=== PATIENT | male | born 1945 | race Caucasian/White ===

== ENCOUNTER 2017-01-12 20:06 | Inpatient (IN) | payer MEDICARE, OTHER ==
[~2017-01-12] VITALS: Ht 175.3 cm; Wt 106.4 kg
[2017-01-12 20:49] LABS: BASOPHILS 0.4 % (0-2); EOSINOPHILS 1.5 % (0-7); HEMATOCRIT 47.6 % (42.0-54.0); HEMOGLOBIN 16.2 g/dL (13.5-17.5); IMMATURE GRANULOCYTES 0.3 % (0-5); LYMPHOCYTES 26.7 % (15-50); MCH 32.2 pg (26.0-34.0); MCV 94.6 fL (80.0-100.0); MEAN PLATELET VOLUME 11.2 fL (7.4-10.4); MONOCYTES 12.2 % (2-11); NEUTROPHILS 58.9 % (40-80); PLATELET COUNT 185 10x3/uL (130-400); RBC 5.03 10x6/uL (4.20-6.10); RDW 13.6 % (11.5-14.5); WBC 7.9 10x3/uL (4.8-10.8)
[2017-01-12 21:13] LABS: KETONE - SERUM NEGATIVE (NEGATIVE)
[2017-01-12 21:27] LABS: ALBUMIN 3.9 g/dL (3.4-5.0); ALKALINE PHOSPHATASE 139 U/L (46-116); ALT (SGPT) 27 U/L (10-68); AMYLASE - SERUM 71 U/L (25-115); BILIRUBIN - TOTAL 0.67 mg/dL (0.2-1.3); CALC OSMOLALITY 288 mosm/kg (275-300); CALCIUM 9.2 mg/dL (8.5-10.1); CARBON DIOXIDE 21.8 mmol/L (21.0-32.0); CHLORIDE - SERUM 104 mmol/L (98-107); CREATININE - SERUM 2.2 mg/dL (0.6-1.3); GLUCOSE 249 mg/dL (74-106); LIPASE 88 U/L (73-393); POTASSIUM - SERUM 4.4 mmol/L (3.5-5.1); PROTEIN - SERUM 6.6 g/dL (6.4-8.2); SODIUM 139 mmol/L (136-145); UREA NITROGEN 21 mg/dL (7-18); eGFR NON AFRICAN AMERICAN 31 mL/min (90-120)
[2017-01-13 05:02] VITALS: Ht 175.3 cm; Wt 106.4 kg
[2017-01-13 08:44] VITALS: BP 114/72
[2017-01-13 12:57] VITALS: BP 134/71
[2017-01-13 15:27] LABS: APPEARANCE CLEAR (CLEAR); BILIRUBIN NEGATIVE (NEGATIVE); COLOR DK YELLOW (YELLOW); GLUCOSE 100 mg/dL (NEGATIVE); KETONE MODERATE mg/dL (NEGATIVE); LEUKOCYTE ESTERASE NEGATIVE (NEGATIVE); NITRITE NEGATIVE (NEGATIVE); PROTEIN NEGATIVE (NEGATIVE)
[2017-01-13 20:00] VITALS: BP 162/88
[2017-01-14] VITALS: BP 139/94
[2017-01-14 04:00] VITALS: BP 167/91
[2017-01-14 05:29] LABS: BASOPHILS 0.4 % (0-2); EOSINOPHILS 0.3 % (0-7); HEMATOCRIT 45.5 % (42.0-54.0); IMMATURE GRANULOCYTES 0.3 % (0-5); MCH 31.6 pg (26.0-34.0); MEAN PLATELET VOLUME 10.9 fL (7.4-10.4); MONOCYTES 14.1 % (2-11); NEUTROPHILS 66.9 % (40-80); PLATELET COUNT 170 10x3/uL (130-400); RBC 4.74 10x6/uL (4.20-6.10); RDW 13.7 % (11.5-14.5); WBC 6.7 10x3/uL (4.8-10.8)
[2017-01-14 05:56] LABS: CALCIUM 8.6 mg/dL (8.5-10.1); POTASSIUM - SERUM 4.3 mmol/L (3.5-5.1)
[2017-01-14 06:00] LABS: CARBON DIOXIDE 28.3 mmol/L (21.0-32.0); CREATININE - SERUM 1.6 mg/dL (0.6-1.3)
--- NOTE | 2017-01-14 08:03 | CN ---
PATIENT NAME:TAIWO PAINTER MEDICAL RECORD: [id number] : 41 LOCATION:D.[facility] ADMIT DATE: 01/13/17 ACCOUNT: [id number] CONSULTING PHYSICIAN: ARACELIS GRUBER MD REFERRING PHYSICIAN: BHAVESH OWENS MD DATE OF CONSULTATION: 01/13/2017 ADMITTING PHYSICIAN: Bhavesh Owens MD. REASON FOR ADMISSION: Medical management of diabetic patient with bowel obstruction. HISTORY OF PRESENT ILLNESS: The patient is a 71-year-old male, type 2 diabetic, who states that he was feeling well, he ate some peaches 2 days ago. He felt some nausea afterwards then developed some recurrent vomiting and then diarrhea. He came to the Emergency Room at 2000 hours last night for this reason. X-rays at that time showed evidence of small bowel obstruction with a small umbilical hernia with fat within it. He was admitted to [facility]. Dr. Owens admitted the patient and consulted us medically. He denies any recent fever, exertional chest pain. He states he is currently on 70 units of long-acting insulin a day and has had fairly well-controlled diabetes. He states he had a similar episode of this approximately 10 years ago, the result with gut rest again. He had a previous gangrenous cholecystectomy, open procedure in the late and has had a hernia ever since. PAST MEDICAL HISTORY: Type 2 diabetes mellitus, GERD, anxiety, depression, BPH, essential hypertension, histoplasmosis retinitis causing partial blindness, COPD, renal cyst, mild renal insufficiency, restless leg syndrome. PAST SURGICAL HISTORY: Open cholecystectomy for gangrene of the gallbladder remotely, bilateral inguinal hernia repairs, ventral hernia repair, colonoscopy in 2011 showing diverticular disease. SOCIAL HISTORY: He lives with his daughter. his last year. The patient was in the [employer] approximately 20 years and then retired. He does not drink coffee. No recent alcohol use, but did drink heavily over 10 years ago. Does not smoke currently. He previously smoked 4 packs a day for 12 years. ALLERGIES: None known. FAMILY HISTORY: Father at 92, had hypertension, respiratory failure, stroke, lung cancer, prostate and testicular cancer. Mother at age 26. Two daughters alive with diabetes and neuropathy. HOME MEDICATIONS: Amaryl 4 mg p.o. daily, amlodipine 5 mg p.o. daily, imipramine 50 mg p.o. at bedtime, Lantus 70 units subQ q.p.m., latanoprost 0.005% solution 1 drop to affected eye as directed, lisinopril 5 mg a day, omeprazole 40 mg a day, tamsulosin 0.4 mg p.o. with evening meal, Wellbutrin XL 150 mg p.o. once daily and temazepam 7.5 mg p.o. at h.s. p.r.n. sleep. REVIEW OF SYSTEMS: CONSTITUTIONAL: No fever, fatigue, or weight change. HEENT: He has chronic trouble with his vision. Denies any recent otalgia or ocular pain. CONSULT REPORT [id number] TAIWO PAINTER RESPIRATORY: Denies shortness of breath, cough or sputum production. CARDIAC: Denies chest pain, claudication or edema. He had negative stress test [address] Leyva's office. GASTROINTESTINAL: Nausea with vomiting as mentioned, repetitive, and some diarrhea. He has had moderate periumbilical abdominal discomfort. No melena or hemetemesis. No previous history of gastric ulcers or peptic ulcer disease. He does have known history of GERD. MUSCULOSKELETAL: He has arthralgias in his knees and hips. NEUROLOGIC: No history of stroke, TIA, or vascular headaches. INTEGUMENT: No rash or itching. PSYCHIATRIC: Denies depress mood currently. PHYSICAL EXAMINATION: VITAL SIGNS: Temperature 98.2 Fahrenheit orally, pulse 88 and regular, respirations 20, blood pressure was 70/50 with a sat 99% on room air. HEENT: Normocephalic. Eyes with clear vision. Pupils reactive. Sclerae nonicteric. Oropharynx unremarkable. NECK: No bruits or masses or thyromegaly. CHEST: He has distant breath sounds without wheeze or rales. HEART: Regular rate without MGR. PMI appropriate. ABDOMEN: Mildly distended with healed right upper quadrant open cholecystectomy scar. There is question of a hernia in the proximal end of this around the umbilicus. RECTAL: Deferred. EXTREMITIES: Trace pretibial edema of the knees bilaterally. He is not cyanotic. NEUROLOGIC: Oriented to person, place, and time. Good memory. Gait is normal. No localizing neurologic deficits were appreciated. PSYCHIATRIC: Admits to some anxiety with no recent depressed mood. LABORATORY DATA: White count 7900 with normal diff, H&H is 16.2 and 47.6, platelet count 185,000. Chemistry shows a BUN and creatinine of 21 and 2.2, baseline creatinine is not known, although he has seen renal in the past. GFR is 31 cc per minute. Glucose is 249, nonfasting. Lactate was 1.4. Liver function normal except for an alkaline phosphatase of 139. Amylase and lipase are normal. Serum ketones are negative. Urinalysis is pending. KUB shows NG tube is not noted. Abdominal CT shows diverticulosis without diverticulitis, 1.1 cm pulmonary nodule in the right lung base, mild dilatation of proximal small bowel loops suggesting low grade or partial obstruction, tiny fat-containing supraumbilical hernia, left renal cyst. ASSESSMENT: 1. Partial small-bowel obstruction most likely secondary to supraumbilical hernia. 2. Remote miniscule cystitis. 3. Azotemia. 4. Diabetes mellitus. 5. Diverticulosis. 6. Essential hypertension. 7. Granulomatous retinitis. 8. Anxiety, depression. 9. Gastroesophageal reflux disease. 10. Benign prostatic hypertrophy. PLAN: The patient currently is admitted with the above findings. He is on CONSULT REPORT [id number] TAIWO PAINTER maintenance IV fluids with NG gut rest. We will placed on sliding scale insulin, address hypertension as needed. We will follow with you currently. TRANSINT:[id number] Voice Confirmation ID: [id number] DOCUMENT ID: [id number] ARACELIS GRUBER MD at 0803 CC: [id number] DICTATION DATE: 01/13/17 1320 RED CROSS EXECUTIVE DIRECTOR: 01/14/[address] [facility] [address] [place] [address]
[2017-01-14 08:58] VITALS: BP 156/82
[2017-01-14] MEDS ORDERED: GLIMEPIRIDE4 MG PO (09:56)
[2017-01-14] MEDS ORDERED: TOFRANIL25 MG PO (09:57)
[2017-01-14] MEDS ORDERED: NORVASC5 MG PO (09:57)
[2017-01-14] MEDS ORDERED: LISINOPRIL5 MG PO (09:57)
[2017-01-14 11:43] VITALS: BP 135/86
== END 2017-01-14 13:00 | disposition home or self-care (01) | DRG 389 ==
LOC: D.ER 20:06 → D.MS 01-13 01:07 → OBSVTIME 01-13 01:07 → D.MS 01-13 01:07
PROVIDERS: Family Medicine; ADMIT Surgery
PROC: 0D9670Z Drainage of Stomach with Drainage Device, Via Natural or Artificial Opening (ICD-10-PCS; principal; 2017-01-13)
DX: K56.60 Unspecified intestinal obstruction (principal); K42.0 Umbilical hernia with obstruction, without gangrene; E11.9 Type 2 diabetes mellitus without complications; Z79.4 Long term (current) use of insulin; K21.9 Gastro-esophageal reflux disease without esophagitis; N40.0 Benign prostatic hyperplasia without lower urinary tract symptoms; I10 Essential (primary) hypertension; J44.9 Chronic obstructive pulmonary disease, unspecified; G25.81 Restless legs syndrome; B39.9 Histoplasmosis, unspecified; H32 Chorioretinal disorders in diseases classified elsewhere

== ENCOUNTER 2017-03-01 06:58 | Day surgery (SDC) | payer MEDICARE, OTHER ==
[~2017-03-01] VITALS: Ht 175.3 cm; Wt 108.9 kg
[~2017-03-01 06:58] MED LIST: GLIMEPIRIDE4 MG PO; LANTUS INSULIN10 ML SC; LISINOPRIL5 MG PO; NORVASC5 MG PO; TOFRANIL25 MG PO; VITAMIN D250000 UNIT PO; XALATAN 0.0052.5 ML EACH EYE
[2017-03-01] MEDS ORDERED: BUPROPION HCL150 M1 PO (07:33)
[2017-03-01 07:35] VITALS: BP 129/76; Ht 175.3 cm; Wt 108.9 kg
[2017-03-01 08:13] LABS: HEMATOCRIT 43.5 % (42.0-54.0); HEMOGLOBIN 15.1 g/dL (13.5-17.5); MCH 32.3 pg (26.0-34.0); MCHC 34.7 g/dL (31.0-37.0); MCV 92.9 fL (80.0-100.0); MEAN PLATELET VOLUME 11.2 fL (7.4-10.4); RBC 4.68 10x6/uL (4.20-6.10); RDW 13.4 % (11.5-14.5); WBC 5.7 10x3/uL (4.8-10.8)
[2017-03-01 08:37] LABS: ANION GAP 14.2 mmol/L (8-16); CALCIUM 8.7 mg/dL (8.5-10.1); CARBON DIOXIDE 23.8 mmol/L (21.0-32.0); CREATININE - SERUM 1.7 mg/dL (0.6-1.3)
--- NOTE | 2017-03-01 15:40 | NUR ---
PATIENT ATTEMPTS TO SIT ON TOILET AND URINATE, PATIENT STATES "I DRIBBLED A DROP OR TWO BUT THAT WAS ALL." PATIENT WALKS BACK TO BED WITH STAND-BY ASSIST AND LIES DOWN, WATER GIVEN AND PATIENT ENCOURAGED TO DRINK
--- NOTE | 2017-03-01 17:15 | NUR ---
PATIENT VOIDS MODERATE AMOUNT URINE IN TOILET, RIGHT HAND PIV DC'D WITH TIP INTACT. PATIENT DRESSING IN PERSONAL CLOTHING
--- NOTE | 2017-03-01 17:40 | NUR ---
DISCHARGE INSTRUCTIONS REVIEWED WITH PATIENT AND GRANDDAUGHTER. DISCHARGED HOME VIA WHEELCHAIR TO PRIVATE VEHICLE WITH GRANDDAUGHTER
== END 2017-03-01 17:40 | disposition home or self-care (01) ==
LOC: D.OPS 06:58 → D.PAN 09:20 → D.OPS 12:15 → D.PAN 12:15 → D.OPS 17:40
PROVIDERS: Anesthesiology
DX: K43.9 Ventral hernia without obstruction or gangrene (principal); J44.9 Chronic obstructive pulmonary disease, unspecified; I10 Essential (primary) hypertension; E11.9 Type 2 diabetes mellitus without complications; M19.90 Unspecified osteoarthritis, unspecified site; K66.0 Peritoneal adhesions (postprocedural) (postinfection); Z01.812 Encounter for preprocedural laboratory examination

== ENCOUNTER 2017-05-28 09:41 | Observation (INO) | payer MEDICARE, OTHER ==
[~2017-05-28] VITALS: Ht 177.8 cm; Wt 105.4 kg
[~2017-05-28 09:41] MED LIST changes: +WELLBUTRIN XL150 M1 PO
[2017-05-28 10:31] LABS: BASOPHILS 0.2 % (0-2); EOSINOPHILS 0.5 % (0-7); HEMATOCRIT 47.1 % (42.0-54.0); HEMOGLOBIN 16.7 g/dL (13.5-17.5); IMMATURE GRANULOCYTES 0.6 % (0-5); MCH 33.1 pg (26.0-34.0); MCHC 35.5 g/dL (31.0-37.0); MCV 93.5 fL (80.0-100.0); MEAN PLATELET VOLUME 11.7 fL (7.4-10.4); MONOCYTES 7.5 % (2-11); NEUTROPHILS 84.2 % (40-80); PLATELET COUNT 187 10x3/uL (130-400); RBC 5.04 10x6/uL (4.20-6.10); RDW 13.8 % (11.5-14.5); WBC 13.7 10x3/uL (4.8-10.8)
[2017-05-28 10:57] LABS: ALBUMIN 3.9 g/dL (3.4-5.0); ANION GAP 14.2 mmol/L (8-16); BILIRUBIN - TOTAL 0.86 mg/dL (0.2-1.3); CALCIUM 8.9 mg/dL (8.5-10.1); CREATININE - SERUM 2.3 mg/dL (0.6-1.3); POTASSIUM - SERUM 4.2 mmol/L (3.5-5.1); PROTEIN - SERUM 6.9 g/dL (6.4-8.2)
--- NOTE | 2017-05-28 11:40 | NUR ---
RECEIVED REPORT FROM YVON IN ED FOR PATIENT BEING ADMITTED TO 2105.
--- NOTE | 2017-05-28 12:10 | NUR ---
RECEIVED PATIENT TO ROOM 2106 VIA WHEELCHAIR FROM ED. PATIENT ALERT/ORIENTED. MINIMAL ASSIST ON TRANSFERING FROM CHAIR TO BED. 20 GAUGE TO LEFT WRIST SALINE LOCKED. RESP EVEN AND UNLABORED. NO DISTRESS. REDNESS TO LEFT KNEE NOTED FROM FALLING EARLY AT HOME REPORTED BY PATIENT.
--- NOTE | 2017-05-28 12:18 | NUR ---
ATTEMPTED TO FLUSH IV TO LEFT WRIST, IV INFILTRATED. WILL HAVE TO RESTART.
[2017-05-28] MEDS ORDERED: FLOMAX0.4 MG PO (12:23)
[2017-05-28] MEDS ORDERED: OMEPRAZOLE40 MG PO (12:24)
[2017-05-28 15:01] VITALS: BP 133/84; Ht 177.8 cm; Wt 105.4 kg
--- NOTE | 2017-05-28 15:47 | NUR ---
20 GAUGE REMOVED FROM LEFT WRIST IV WAS INFILTRATED. 22 GAUGE IV PLACED X 1 STICK TO LEFT FOREARM, GOOD BLOOD RETURN, EASY FLUSH. TAPED, DATED AND SECURED. IV FLUIDS INFUSING ORDERED AT THIS TIME. TOLERATED IV PLACEMENT WELL. NO DISTRESS.
--- NOTE | 2017-05-28 16:25 | NUR ---
FSBS 162. 4 UNITS HUMALOG ADMINISTERED PER SLIDING SCALE.
--- NOTE | 2017-05-28 19:15 | NUR ---
RECEIVED REPORT. WILL ASSUME CARE OF PT, PT SLEEPING AT THIS TIME, BED IS LOW, SRX2, CALL LIGHT IN REACH, WILL CONTINUE PLAN OF CARE
[2017-05-28 20:00] VITALS: BP 128/64
--- NOTE | 2017-05-28 21:00 | NUR ---
[id number] 4 UNITS ORDER
[2017-05-29] VITALS: BP 122/80
--- NOTE | 2017-05-29 02:30 | NUR ---
ASSESSMENT COMPLETE, SEE FLOWSHEET, PT SLEEPING, SCD ARE ON, BED IS LOW, SRX2, WILL CONTINUE PLAN OF CARE
[2017-05-29 05:55] VITALS: BP 142/88
--- NOTE | 2017-05-29 06:25 | NUR ---
BLOODSUGAR 53, GAVE OJ AND CRACKERS RECHECK-88
--- NOTE | 2017-05-29 07:43 | NUR ---
AM ROUNDING- RECIEVED REPORT FROM CHEMICAL TESTER NURSE MOOKIE. PT IS CURRENTLY LAYING IN BED ON BACK WITH EYES CLOSED RESTING. ON ROOM AIR. ON MONITOR SHOWING SR, HR 77. IV SEEN TO LUKE FOREARM WI NS RUNNING AT 100CC. NO NEED AT THIS CURRENT TIME. DUE TO HX OF FALLS (PER REPORT FROM MOOKIE), CATRACHITO BED ALARM IS ON. WILL CONTINUE TO MONITOR AND CONTINUE WITH PLAN OF CARE.
[2017-05-29 08:00] VITALS: BP 131/65
[2017-05-29 12:00] VITALS: BP 138/70
[2017-05-29 16:00] VITALS: BP 114/70
--- NOTE | 2017-05-29 17:36 | NUR ---
PT IS CURRENTLY SITTING UP IN CHAIR WITH EYES OPEN RESTING. CANDELARIO WOO IS WORKING ON PTS D/C PAPERWORK NOW. WILL CONTINUE TO MONITOR AND D/C PT ORDERED ONCE PAPERWORK IS DONE.
--- NOTE | 2017-05-29 18:31 | NUR ---
D/C INSTRUCTIONS EXPLAINED TO PT. D/C PAPERWORK SIGNED BY PT AND PLACED IN CHART. IV TO LEFT FOREARM REMOVED WITH CATH TIP INTACT. COVERED SITE WITH 2X2 GAUZE PADS AND SECURED WITH TAPE. HEART MONITOR REMOVED AND RETURNED TO JAMIN IN TELEMETRY. PT D/C VIA WHEELCHAIR.
--- NOTE | 2017-05-31 20:04 | HP ---
PATIENT: TAIWO PAINTER MEDICAL RECORD: [id number] ACCOUNT: [id number] LOCATION:[address] : 43 ADMISSION DATE: 05/28/17 HISTORY AND PHYSICAL EXAMINATION DATE OF ADMISSION: 05/28/2017 REASON FOR ADMISSION: 1. Hypotension/dizziness. 2. Fall. 3. Contusion in the left knee. HISTORY OF PRESENT ILLNESS: This is a 72-year-old male followed by Yue العلي APN, at [facility]. The patient states that he got up at home and got real dizzy and fell down. He did not lose consciousness. He twisted his left knee a little, but states his pain is worse after he had to crawl on his hands and knees to get to a phone. When he was brought in to the Emergency Room, his vital signs were stable except his blood pressure was 85/62. He does not remember taking an extra dose of blood pressure medication. He has not had this problem before. He is assigned to observation for this problem. PAST MEDICAL HISTORY: He has type 2 diabetes, reflux, history of anxiety, depression, enlarged prostate, hypertension, COPD, mild renal insufficiency, restless leg syndrome, histoplasmosis, and retinitis causing partial blindness. PAST SURGICAL HISTORY: He had open cholecystectomy for gangrene of the gallbladder years ago. He has had bilateral inguinal hernia repairs, ventral hernia repair, colonoscopy in 2011 showing diverticular disease in January of this year, he was admitted for bowel obstruction. HOME MEDICATIONS: Include: Flomax 0.4 mg once a day, lisinopril 5 mg once a day, amlodipine 5 mg once a day, Wellbutrin 150 mg once a day, imipramine 25 mg at bedtime for dreams, Xalatan ophthalmic drops 1 drop each eye at bedtime, Protonix 40 mg once a day, glimepiride 4 mg with breakfast, Lantus insulin 65 units daily, vitamin D 50,000 units once a month. ALLERGIES: None known. SOCIAL HISTORY: Lives with his daughter. He is . He was retired from the [employer]. HABITS: Heavy drinker over 10 years ago, smokes heavily, but quit 10-12 years ago. FAMILY HISTORY: Father at 92 with blood pressure. He had a stroke, lung cancer, prostate and testicular cancer. Mother at 26. Two daughters alive with diabetes. REVIEW OF SYSTEMS: GENERAL: No major weight changes. HEENT: No particular sinus or allergy problems. RESPIRATORY: Has mild COPD, but has no recent cough or shortness of breath. GASTROINTESTINAL: He has been admitted with bowel obstruction, has occasional nausea, some reflux. MUSCULOSKELETAL: Arthralgias in knees and hips. HISTORY AND PHYSICAL [id number] TAIWO PAINTER NEUROLOGIC: No history of stroke, TIA or vascular headaches. PSYCHIATRIC: He is on Wellbutrin for depression. The imipramine is used to help with abnormal dreams. PHYSICAL EXAMINATION: GENERAL: He is awake and alert, does not appear in acute distress at this time. VITAL SIGNS: Temperature 97.3, pulse 91, respirations 18, blood pressure 133/84 now. O2 sat 98%. HEENT: Unremarkable. NECK: Supple. No JVD or bruit. HEART: Regular rate and rhythm without murmur. LUNGS: Fairly clear. ABDOMEN: Soft, flat, nontender. EXTREMITIES: Has a little discomfort in the left knee, no point tenderness. I do not think there are any fractures. EXTREMITIES: No edema. LABORATORY DATA: CBC with a white count of 13,700; hemoglobin 16.7, hematocrit 47, platelets number 187,000. Glucose was 162, BUN 21, creatinine 2.3, glucose was 333. Liver enzymes were okay. ASSESSMENT: 1. Hypotension/dizziness. 2. Fall at home. 3. Contusion in the left knee. PLAN: Give IV fluids, we will hold blood pressure medicines. If he feels fine tomorrow, we will send him home and stop the Lisinopril. TRANSINT:[id number] Voice Confirmation ID: [id number] DOCUMENT ID: [id number] DEBRA ASH MD at 2004 CC: [id number] DICTATION DATE: 05/29/17 1440 SCALE ADJUSTER: 05/29/171933 DIS IN 05/29/17 [facility] [address] [place] [address]
== END 2017-05-29 18:32 | disposition home or self-care (01) ==
LOC: D.ER 09:41 → D.M2 11:20 → OBSVTIME 11:20 → D.M2 05-29 18:32
PROVIDERS: Emergency Medicine; ADMIT Family Medicine
DX: I95.9 Hypotension, unspecified (principal); R42 Dizziness and giddiness; S80.02XA Contusion of left knee, initial encounter; W19.XXXA Unspecified fall, initial encounter; E11.9 Type 2 diabetes mellitus without complications; F32.9 Major depressive disorder, single episode, unspecified; F41.9 Anxiety disorder, unspecified; I10 Essential (primary) hypertension; J44.9 Chronic obstructive pulmonary disease, unspecified; G25.81 Restless legs syndrome

== ENCOUNTER → 2017-06-20 14:38 | Outpatient (CLI) | payer MEDICARE, OTHER ==
[2017-05-28 15:01] VITALS: BMI 33.3
[~2017-06-20 14:38] MED LIST changes: +FLOMAX0.4 MG PO; +OMEPRAZOLE40 MG PO
[2017-06-21 12:18] LABS: ANA REFLEX - DIRECT Negative (Negative)
[2017-06-22 05:14] LABS: ANGIOTENSIN CONVERTING ENZYME 22 U/L (14-82)
[2017-06-24 17:11] LABS: FUNGAL - ASP FLAVUS Negative (Neg:<1:1); FUNGAL - ASP NIGER Negative (Neg:<1:1); FUNGAL - ASPER FUMIGATUS Negative (Neg:<1:1)
== END | disposition home or self-care (01) ==
LOC: D.LABREF 14:38
PROVIDERS: Internal Medicine Pulmonary Disease
DX: J44.9 Chronic obstructive pulmonary disease, unspecified (principal)

== ENCOUNTER → 2017-07-04 08:28 | Outpatient (CLI) | payer MEDICARE, OTHER ==
[2017-05-28 15:01] VITALS: BMI 33.3
[2017-07-05 10:18] LABS: ANA REFLEX - DIRECT Negative (Negative)
[2017-07-06 12:15] LABS: ANGIOTENSIN CONVERTING ENZYME 21 U/L (14-82)
== END | disposition home or self-care (01) ==
LOC: D.RT 06-16 11:00 → D.LAB 06-16 12:00 → D.RT 08:28
PROVIDERS: Internal Medicine Pulmonary Disease
DX: J44.9 Chronic obstructive pulmonary disease, unspecified (principal)

== ENCOUNTER 2017-11-03 00:30 | Emergency (ER) | payer MEDICARE, OTHER ==
[2017-05-28 15:01] VITALS: BMI 33.3
[2017-11-03 01:02] LABS: BASOPHILS 0.4 % (0-2); HEMATOCRIT 42.7 % (42.0-54.0); HEMOGLOBIN 14.9 g/dL (13.5-17.5); IMMATURE GRANULOCYTES 0.3 % (0-5); LYMPHOCYTES 9.8 % (15-50); MCH 32.2 pg (26.0-34.0); MCHC 34.9 g/dL (31.0-37.0); MCV 92.2 fL (80.0-100.0); MEAN PLATELET VOLUME 10.7 fL (7.4-10.4); NEUTROPHILS 73.5 % (40-80); PLATELET COUNT 159 10x3/uL (130-400); RBC 4.63 10x6/uL (4.20-6.10); RDW 13.3 % (11.5-14.5); WBC 7.1 10x3/uL (4.8-10.8)
[2017-11-03 01:18] LABS: ALBUMIN 3.5 g/dL (3.4-5.0); ALKALINE PHOSPHATASE 121 U/L (46-116); ALT (SGPT) 22 U/L (10-68); BILIRUBIN - TOTAL 0.65 mg/dL (0.2-1.3); CALC OSMOLALITY 272 mosm/kg (275-300); CALCIUM 8.8 mg/dL (8.5-10.1); CARBON DIOXIDE 22.8 mmol/L (21.0-32.0); CHLORIDE - SERUM 103 mmol/L (98-107); POTASSIUM - SERUM 3.5 mmol/L (3.5-5.1); PROTEIN - SERUM 6.4 g/dL (6.4-8.2); SODIUM 136 mmol/L (136-145); UREA NITROGEN 19 mg/dL (7-18); eGFR NON AFRICAN AMERICAN 35 mL/min (90-120)
[2017-11-03 01:21] LABS: GLUCOSE 73 mg/dL (74-106)
[2017-11-03 01:34] LABS: APTT 24.2 SECONDS (22.8-39.4); INR 1.1 (0.85-1.17); PROTIME 13.8 SECONDS (11.6-15.0)
[2017-11-03 01:35] LABS: D-DIMER-QUANTITATIVE 0.6 ug/mLFEU (0.20-0.54)
[2017-11-03 01:47] LABS: CREATINE KINASE 163 UL (21-232); TROPONIN-I < 0.017 ng/mL (0.000-0.060)
== END 2017-11-03 04:35 | disposition home or self-care (01) ==
LOC: D.ER 00:30
PROVIDERS: Family Medicine
DX: R55 Syncope and collapse (principal); E11.649 Type 2 diabetes mellitus with hypoglycemia without coma; I10 Essential (primary) hypertension; I45.10 Unspecified right bundle-branch block; I44.4 Left anterior fascicular block

== ENCOUNTER → 2017-11-10 14:48 | Outpatient (CLI) | payer MEDICARE, OTHER ==
[2017-05-28 15:01] VITALS: BMI 33.3
== END | disposition home or self-care (01) ==
LOC: D.RAD 14:48
DX: J45.909 Unspecified asthma, uncomplicated (principal)

== ENCOUNTER 2018-03-02 08:18 | Inpatient (IN) | payer MEDICARE, OTHER ==
[2018-03-02] VITALS (9 sets, daily range): BP systolic 132–165; BP diastolic 57–73; BMI 32.3
[~2018-03-02] VITALS: Ht 177.8 cm; Wt 102.1 kg
--- NOTE | ~2018-03-02 | HP ---
PATIENT: TAIWO PAINTER MEDICAL RECORD: [id number] ACCOUNT: [id number] LOCATION:D.MS [id number] : 43 ADMISSION DATE: 03/02/18 HISTORY AND PHYSICAL EXAMINATION REASON FOR ADMISSION: Severe right leg pain. HISTORY OF PRESENT ILLNESS: The patient is a 72-year-old male with history of metabolic syndrome. He has had chronic lymphedema and approximately a month ago, had some bedbug bites on both of his legs. Those improved. He does have increasing redness on the top of his right lower leg and foot yesterday and had severe pain in his leg that awakened him this morning at 0400 hours. There was more edema. He denied chest pain or shortness of breath. He has subjective fever nondocumented. For this reason, he came to the Emergency Room and was evaluated by Dr. De Jesus. He was diagnosed with cellulitis and right lower extremity lymphedema with a negative venous Doppler, and due to diabetes, is now being admitted for further evaluation and treatment. PAST MEDICAL HISTORY: AODM, GERD, history of depression, BPH, COPD, essential hypertension, mild renal insufficiency, RLS, history of histoplasmosis retinitis causing partial blindness, ventral hernia, diabetic peripheral neuropathy, history of anxiety, insomnia, glaucoma. PAST SURGICAL HISTORY: Open cholecystectomy for gangrene. Bilateral inguinal hernia repairs, ventral hernia repair times 1 with mesh in 2017. History of colonoscopy showing diverticular disease in January of 2012. He was admitted for bowel obstruction in January of 2017. 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 He is currently nonsmoker and nondrinker. HOME MEDICATIONS: Bydureon 2 mg subcutaneously weekly, hydroxyzine 25 mg one to two tablets q. 6 hours for itching, Flonase nasal spray daily, cetirizine 10 mg daily, montelukast 10 mg at bedtime, Lantus insulin 45 units subcutaneously at bedtime, NovoLog insulin per sliding scale q.a.m., Advair 250/50 one puff b.i.d. p.r.n., tamsulosin 0.4 mg p.o. daily, amlodipine 5 mg a day, omeprazole 40 mg a day, latanoprost 0.005% eyedrops one drop both eyes daily, vitamin D 50,000 units p.o. weekly, lisinopril 5 mg daily. ALLERGIES: None known. SOCIAL HISTORY: He lives with his daughter. He is . He is retired from the [employer], served for 18 years. He was a heavy drinker 10 years ago and smoked heavily, but quit both of that 10 years ago. FAMILY HISTORY: Positive for father who at 92, had hypertension, stroke, lung cancer, prostate and testicular cancer. Mother at age 26. Two daughters alive with diabetes. REVIEW OF SYSTEMS: GENERAL: He has not been fatigued or felt like he had fever. HEENT: No recent visual change, sinus congestion, or sore throat. RESPIRATORY: No severe cough. CARDIAC: No chest pain, palpitations, or claudication, although he has had increased edema of both lower extremities, right greater than left. HISTORY AND PHYSICAL [id number] TAIWO PAINTER ENDOCRINE: Denies polyuria, polydipsia, heat or cold intolerance. NEUROLOGIC: No history of stroke, TIA, or vascular headaches. PSYCHIATRIC: Admits to intermittent depressed mood, he says, because he felt remorseful because he did not serve in [employer]. INTEGUMENT: Increasing rash, erythema, and pain in his right leg and top of his foot for the last 24 hours. He has history of eczema. GENITOURINARY: Nocturia once nightly. PHYSICAL EXAMINATION: VITAL SIGNS: Temperature is 98.6 Fahrenheit orally, pulse 88 and regular, respirations 18, O2 sat is 100% on room air. HEENT: Normocephalic. Eyes are clear. NECK: No bruits or masses. CHEST: Clear without wheezes or rales. HEART: Regular rate without gallop. ABDOMEN: Soft, mildly obese, nontender. GENITOURINARY: Deferred. EXTREMITIES: He has 3+ edema in the right lower extremity, has 2+ in the left. He has negative Homans' signs. SKIN: Shows faint erythematous and warm pink rash on the top of his left foot and on the left anterior [id number] tibial area. NEUROLOGIC: He is oriented to person, place, and time. Memory is intact. Gait was not tested. No obvious motor or sensory deficits are appreciated. DIAGNOSTIC DATA: Venous Doppler shows no evidence of DVT in right lower extremity. ASSESSMENT: 1. Cellulitis, right lower extremity, and diabetic. 2. AODM. 3. Hypertension. 4. Hyperlipidemia. 5. Eczema. 6. RLS. 7. Glaucoma. 8. History of histoplasmosis retinitis. 9. COPD. PLAN: The patient is admitted for IV antibiotics and treatment of RLS. Sliding scale insulin. Will attempt to find last echo to evaluate ejection fraction. TRANSINT:[id number] Voice Confirmation ID: [id number] DOCUMENT ID: [id number] ARACELIS GRUBER MD at 0733 CC: [id number] DICTATION DATE: 03/02/18 1336 TRAILER CHIEF: 03/02/18 1456 ADM IN [facility] [address] [place] [id number]
[2018-03-02] MEDS ORDERED: LISINOPRIL5 MG PO (08:28)
[2018-03-02] MEDS ORDERED: HUMALOG 30100 UNITS/ SC (08:31)
[2018-03-02 09:41] LABS: EOSINOPHILS 6.9 % (0-7); HEMATOCRIT 40.1 % (42.0-54.0); HEMOGLOBIN 13.8 g/dL (13.5-17.5); IMMATURE GRANULOCYTES 0.4 % (0-5); LYMPHOCYTES 27.7 % (15-50); MCH 32.3 pg (26.0-34.0); MCHC 34.4 g/dL (31.0-37.0); MCV 93.9 fL (80.0-100.0); MEAN PLATELET VOLUME 11.2 fL (7.4-10.4); MONOCYTES 14.7 % (2-11); NEUTROPHILS 49.3 % (40-80); PLATELET COUNT 190 10x3/uL (130-400); RBC 4.27 10x6/uL (4.20-6.10); RDW 13.6 % (11.5-14.5)
[2018-03-02 09:59] LABS: ALBUMIN 3.2 g/dL (3.4-5.0); ANION GAP 12.8 mmol/L (8-16); BILIRUBIN - TOTAL 0.44 mg/dL (0.2-1.3); CALCIUM 8.7 mg/dL (8.5-10.1); CARBON DIOXIDE 26.5 mmol/L (21.0-32.0); CREATININE - SERUM 1.4 mg/dL (0.6-1.3); POTASSIUM - SERUM 4.3 mmol/L (3.5-5.1); PROTEIN - SERUM 6.1 g/dL (6.4-8.2)
[2018-03-02 10:27] LABS: APPEARANCE CLEAR (CLEAR); BILIRUBIN NEGATIVE (NEGATIVE); COLOR STRAW (YELLOW); GLUCOSE 250 mg/dL (NEGATIVE); KETONE NEGATIVE (NEGATIVE); NITRITE NEGATIVE (NEGATIVE); PROTEIN NEGATIVE (NEGATIVE); UROBILINOGEN NORMAL (NORMAL)
[2018-03-02] MEDS ORDERED: SINGULAIR10 MG (10:39)
[2018-03-02] MEDS ORDERED: FEXOFENADINE H180 MG (10:40)
[2018-03-02] MEDS ORDERED: VITAMIN D250000 UNIT PO (10:42)
[2018-03-02] MEDS ORDERED: BYDUREON P2 MG/0.65 (10:43)
[2018-03-02] MEDS ORDERED: BENADRYL25 MG PO (10:43)
[2018-03-02] MEDS ORDERED: VITAMIN C1000 MG PO (10:44)
[2018-03-02] MEDS ORDERED: VITAMIN B COMPL1 TAB (10:45)
[2018-03-02] MEDS ORDERED: FLUTICASONE PRO16 GM NASAL (10:46)
[2018-03-02] MEDS ORDERED: BUPROPION XL150 MG (10:48)
[2018-03-02] MEDS ORDERED: ADVAIR 250/501 DISK INH (10:58)
[2018-03-03] VITALS: BP 141/73
[2018-03-03 03:59] LABS: BASOPHILS 0.6 % (0-2); EOSINOPHILS 5.3 % (0-7); HEMATOCRIT 39.3 % (42.0-54.0); HEMOGLOBIN 13.4 g/dL (13.5-17.5); IMMATURE GRANULOCYTES 0.2 % (0-5); LYMPHOCYTES 24.6 % (15-50); MCHC 34.1 g/dL (31.0-37.0); MCV 93.8 fL (80.0-100.0); MEAN PLATELET VOLUME 10.7 fL (7.4-10.4); NEUTROPHILS 56.3 % (40-80); PLATELET COUNT 159 10x3/uL (130-400); RBC 4.19 10x6/uL (4.20-6.10); RDW 13.6 % (11.5-14.5); WBC 5.3 10x3/uL (4.8-10.8)
[2018-03-03 04:00] VITALS: BP 111/65
[2018-03-03 04:30] LABS: ANION GAP 10.8 mmol/L (8-16); BILIRUBIN - TOTAL 0.53 mg/dL (0.2-1.3); CALCIUM 8.7 mg/dL (8.5-10.1); CREATININE - SERUM 1.4 mg/dL (0.6-1.3); POTASSIUM - SERUM 3.8 mmol/L (3.5-5.1); PROTEIN - SERUM 5.6 g/dL (6.4-8.2)
[2018-03-03 08:17] VITALS: BP 126/63
[2018-03-03 14:46] VITALS: Ht 177.8 cm; Wt 102.1 kg
[2018-03-03 15:43] VITALS: BP 115/50
[2018-03-03 20:00] VITALS: BP 121/65
[2018-03-04] VITALS: BP 129/59
[2018-03-04 05:43] VITALS: BP 115/47
[2018-03-04 08:13] VITALS: BP 136/58
[2018-03-04 15:47] VITALS: BP 119/72
[2018-03-04 19:56] VITALS: BP 110/55
[2018-03-05] VITALS (7 sets, daily range): BP systolic 103–150; BP diastolic 53–74
[2018-03-06 04:20] VITALS: BP 132/62
[2018-03-06] MEDS ORDERED: AUGMENTIN 875-11 TAB PO (07:53)
[2018-03-06 08:46] VITALS: BP 115/55
== END 2018-03-06 10:52 | disposition home or self-care (01) | DRG 638 ==
LOC: D.ER 08:18 → D.EDHOLD 12:41 → D.MS 12:41
PROVIDERS: Family Medicine
DX: E11.628 Type 2 diabetes mellitus with other skin complications (principal); L03.115 Cellulitis of right lower limb; L30.9 Dermatitis, unspecified; E88.81 Metabolic syndrome and other insulin resistance; I89.0 Lymphedema, not elsewhere classified; K21.9 Gastro-esophageal reflux disease without esophagitis; I10 Essential (primary) hypertension; N40.0 Benign prostatic hyperplasia without lower urinary tract symptoms; E11.42 Type 2 diabetes mellitus with diabetic polyneuropathy; E78.5 Hyperlipidemia, unspecified; G25.81 Restless legs syndrome; J44.9 Chronic obstructive pulmonary disease, unspecified

== ENCOUNTER 2019-08-18 14:07 | Emergency (ER) | payer MEDICARE, OTHER ==
[~2019-08-18] VITALS: Ht 177.8 cm; Wt 109.1 kg
[~2019-08-18 14:07] MED LIST changes: +ADVAIR 250/501 DISK INH; +AUGMENTIN 875-11 TAB PO; +BENADRYL25 MG PO; +BUPROPION XL150 MG; +BYDUREON P2 MG/0.65; +FEXOFENADINE H180 MG; +FLUTICASONE PRO16 GM NASAL; +HUMALOG 30100 UNITS/ SC; +SINGULAIR10 MG; +VITAMIN B COMPL1 TAB; +VITAMIN C1000 MG PO
[2019-08-18 14:10] VITALS: Ht 177.8 cm; Wt 109.1 kg
[2019-08-18] MEDS ORDERED: MUPIROCIN22 GM TOPICAL (16:21)
[2019-08-18] MEDS ORDERED: EC-NAPROSYN500 MG PO (16:21)
[2019-08-18 16:32] VITALS: BP 142/78
== END 2019-08-18 16:32 | disposition home or self-care (01) ==
LOC: D.ER 14:07
DX: S09.90XA Unspecified injury of head, initial encounter (principal); W10.1XXA Fall (on)(from) sidewalk curb, initial encounter; S60.222A Contusion of left hand, initial encounter; S00.81XA Abrasion of other part of head, initial encounter; E04.1 Nontoxic single thyroid nodule; T14.8XXA Other injury of unspecified body region, initial encounter; S61.412A Laceration without foreign body of left hand, initial encounter; I10 Essential (primary) hypertension; E11.9 Type 2 diabetes mellitus without complications; Z79.4 Long term (current) use of insulin; J44.9 Chronic obstructive pulmonary disease, unspecified; H40.9 Unspecified glaucoma

== ENCOUNTER → 2019-09-28 14:25 | Outpatient (CLI) | payer MEDICARE, OTHER ==
[2019-08-18 14:10] VITALS: BMI 34.5
[~2019-09-28 14:25] MED LIST changes: +EC-NAPROSYN500 MG PO; +MUPIROCIN22 GM TOPICAL
== END | disposition home or self-care (01) ==
LOC: D.CT 14:25
PROVIDERS: ATTEND Nurse Practitioner Family
DX: R22.1 Localized swelling, mass and lump, neck (principal)

== ENCOUNTER 2020-04-16 05:58 | Inpatient (IN) | payer MEDICARE, OTHER ==
[~2020-04-16] VITALS: Ht 177.8 cm; Wt 121.0 kg
[~2020-04-16 05:58] MED LIST changes: -SINGULAIR10 MG; +SINGULAIR10 MG PO; -VITAMIN B COMPL1 TAB; +Vitamin B Complex PO
[2020-04-16 07:03] LABS: BASOPHILS 0.1 % (0-2); EOSINOPHILS 0.1 % (0-7); HEMATOCRIT 43.7 % (42.0-54.0); HEMOGLOBIN 15.1 g/dL (13.5-17.5); IMMATURE GRANULOCYTES 0.4 % (0-5); LYMPHOCYTES 2.4 % (15-50); MCH 32.3 pg (26.0-34.0); MCHC 34.6 g/dL (31.0-37.0); MCV 93.6 fL (80.0-100.0); MEAN PLATELET VOLUME 11.5 fL (7.4-10.4); MONOCYTES 9.2 % (2-11); NEUTROPHILS 87.8 % (40-80); PLATELET COUNT 154 10x3/uL (130-400); RBC 4.67 10x6/uL (4.20-6.10); RDW 13.4 % (11.5-14.5); WBC 16.1 10x3/uL (4.8-10.8)
[2020-04-16 07:09] LABS: CALC OSMOLALITY 279 mosm/kg (275-300); CALCIUM 8.4 mg/dL (8.5-10.1); CARBON DIOXIDE 24.3 mmol/L (21.0-32.0); CHLORIDE - SERUM 101 mmol/L (98-107); CREATININE - SERUM 1.8 mg/dL (0.6-1.3); POTASSIUM - SERUM 3.7 mmol/L (3.5-5.1); SODIUM 135 mmol/L (136-145); UREA NITROGEN 20 mg/dL (7-18); eGFR NON AFRICAN AMERICAN 39 mL/min (90-120)
[2020-04-16 07:12] LABS: GLUCOSE 220 mg/dL (74-106)
[2020-04-16 07:21] LABS: APTT 22.9 SECONDS (22.8-39.4); INR 1.03 (0.85-1.17); PROTIME 13.4 SECONDS (11.6-15.0)
[2020-04-16 07:29] VITALS: BP 135/77
[2020-04-16 07:36] LABS: ALKALINE PHOSPHATASE 131 U/L (30-120); ALT (SGPT) 29 U/L (10-68)
[2020-04-16 07:37] LABS: ALBUMIN 3.6 g/dL (3.4-5.0); BILIRUBIN - TOTAL 0.71 mg/dL (0.2-1.3); CKMB 1.4 U/L (0.0-3.6); CREATINE KINASE 209 UL (21-232); PRO BNP 196 pg/mL (0-450); PROTEIN - SERUM 6.5 g/dL (6.4-8.2)
--- NOTE | 2020-04-16 07:39 | NUR ---
SPOKE WITH DR MCCARTHY RE: SEPSIS BOLUS FLD ORDERS PER 30ML/KG= 3690 ML AND PT WITH HAS BLE 3+ PITTING EDEMA. DR TREADWELL ORDERS IDEAL BODY WT CALCULATION FOR FLD RESUSITATION. CALLED THERESA, PHARMACIST AND SHE REPORTS PTS IDEAL BODY WT IS 73 KG X 30 ML = 2190 ML
[2020-04-16 09:01] VITALS: BP 130/62
--- NOTE | 2020-04-16 10:15 | NUR ---
REPORT RECIEVED. PT TO ROOM FROM ER. PT HAS A R AC PIV INFUSING ANTIBIOTICS AT THIS TIME. RR EVEN AND UNLABORED ON RA. PT HAS NO NEEDS AT THIS TIME. BED LOCKED AND IN LOWEST POSITION, CALL LIGHT WITHIN REACH. WILL CTM
[2020-04-16 10:45] VITALS: BP 121/65
[2020-04-16 11:20] VITALS: BP 121/65; BMI 38.3
[2020-04-16 15:58] VITALS: BP 142/72
--- NOTE | 2020-04-16 19:30 | NUR ---
PT IN BED, AAO X 3, RESP EVEN AND UNLABORED. NO DISTRESS NOTED. CL IN REACH, SR UP X 2.
[2020-04-16 20:00] VITALS: BP 137/68
[2020-04-17 06:37] LABS: HEMATOCRIT 42.1 % (42.0-54.0); HEMOGLOBIN 14.5 g/dL (13.5-17.5); LYMPHOCYTES 12.6 % (15-50); MCH 32.4 pg (26.0-34.0); MCHC 34.4 g/dL (31.0-37.0); MCV 94.2 fL (80.0-100.0); MEAN PLATELET VOLUME 11.5 fL (7.4-10.4); NEUTROPHILS 76.7 % (40-80); RBC 4.47 10x6/uL (4.20-6.10); RDW 13.5 % (11.5-14.5)
[2020-04-17 06:41] LABS: PLATELET COUNT 123 10x3/uL (130-400); WBC 8.2 10x3/uL (4.8-10.8)
[2020-04-17 07:03] LABS: ALBUMIN 3.1 g/dL (3.4-5.0); ALKALINE PHOSPHATASE 92 U/L (30-120); ALT (SGPT) 27 U/L (10-68); BILIRUBIN - TOTAL 0.79 mg/dL (0.2-1.3); CALCIUM 8.2 mg/dL (8.5-10.1); CARBON DIOXIDE 27.3 mmol/L (21.0-32.0); CHLORIDE - SERUM 102 mmol/L (98-107); CKMB 1.1 U/L (0.0-3.6); CREATININE - SERUM 1.7 mg/dL (0.6-1.3); POTASSIUM - SERUM 3.8 mmol/L (3.5-5.1); PROTEIN - SERUM 5.9 g/dL (6.4-8.2); SODIUM 138 mmol/L (136-145); UREA NITROGEN 16 mg/dL (7-18); eGFR NON AFRICAN AMERICAN 42 mL/min (90-120)
[2020-04-17 07:04] LABS: CALC OSMOLALITY 286 mosm/kg (275-300); CREATINE KINASE 287 UL (21-232); GLUCOSE 270 mg/dL (74-106); TROPONIN-I 0.261 ng/mL (0.000-0.060)
[2020-04-17 08:58] VITALS: BP 143/72
[2020-04-17 11:24] VITALS: BP 135/50
[2020-04-17 12:49] VITALS: Ht 177.8 cm; Wt 121.0 kg
[2020-04-17 15:17] VITALS: BP 107/38
[2020-04-17 18:31] VITALS: BP 127/59
--- NOTE | 2020-04-17 19:30 | NUR ---
PT IN BED, AAO X 3, RESP EVEN AND UNLABORED. NO DISTRESS NOTED, NO C/O PAIN OR DISCOMFORT NOTED, CL IN REACH, SR UP X 2.
[2020-04-18 03:23] VITALS: BP 122/79
[2020-04-18 05:49] LABS: BASOPHILS 0.6 % (0-2); EOSINOPHILS 3.1 % (0-7); HEMATOCRIT 38.2 % (42.0-54.0); IMMATURE GRANULOCYTES 0.2 % (0-5); LYMPHOCYTES 23.3 % (15-50); MCH 32.1 pg (26.0-34.0); MCV 94.3 fL (80.0-100.0); MEAN PLATELET VOLUME 11.5 fL (7.4-10.4); NEUTROPHILS 56.8 % (40-80); PLATELET COUNT 120 10x3/uL (130-400); RBC 4.05 10x6/uL (4.20-6.10); RDW 13.6 % (11.5-14.5)
[2020-04-18 05:51] LABS: WBC 5.4 10x3/uL (4.8-10.8)
[2020-04-18 07:19] LABS: POTASSIUM - SERUM 3.4 mmol/L (3.5-5.1)
[2020-04-18 07:42] LABS: ANION GAP 14.7 mmol/L (8-16); CARBON DIOXIDE 17.7 mmol/L (21.0-32.0); CREATININE - SERUM 1.2 mg/dL (0.6-1.3); TROPONIN-I 0.095 ng/mL (0.000-0.060)
[2020-04-18 07:45] LABS: CALCIUM 6.8 mg/dL (8.5-10.1)
[2020-04-18] MEDS ORDERED: BISOPROLOL FUMAR5 MG PO (08:22)
[2020-04-18] MEDS ORDERED: ASPIRIN325 MG PO (08:22)
[2020-04-18] MEDS ORDERED: ZPAK PO (08:23)
[2020-04-18 08:49] VITALS: BP 137/65
--- NOTE | 2020-04-18 10:30 | MORECARE ---
CASE MANAGEMENT DISCHARGE SUMMARY PATIENT: TAIWO PAINTER UNIT: [id number] ADM DATE: 04/16/20 AGE: 75 : 43 SEX: M ROOM/BED: D.2990 AUTHOR: TAN PARHAM PHYSICIAN: REFERRING PHYSICIAN: TIMOTEO WOOD MD DATE OF SERVICE: 04/18/20 Discharge Plan Patient Name: TAIWO PAINTER [facility] [facility] 1945 Planned Disposition: Home Health Service Anticipated Discharge Date: Discharge Date: Expected LOS: Initial Reviewer: [email or web address] Initial Review Date: 04/16/2020 Generated: 04/18/20 11:29 am External Providers External Provider: [facility] Next Contact Date: Service Request Date: Service Type: Resolution: Reviewer: Comments: Patient Name: TAIWO PAINTER Page [phone] at 1030 All edits/amendments must be made on the electronic document DICTATION DATE: 04/18/20 1029 LABORATORY TECHNOLOGY TEACHER: JIMY 04/18/20 1029 RPT#: [id number] DC DATE: STATUS: ADM IN [facility] [address] [place] [address] END OF REPORT
--- NOTE | 2020-04-18 10:40 | MORECARE ---
CASE MANAGEMENT DISCHARGE SUMMARY PATIENT: TAIWO PAINTER UNIT: [id number] ADM DATE: 04/16/20 AGE: 75 : 43 SEX: M ROOM/BED: D.1239 AUTHOR: TAN PARHAM PHYSICIAN: REFERRING PHYSICIAN: TIMOTEO WOOD MD DATE OF SERVICE: 04/18/20 Discharge Plan Patient Name: TAIWO PAINTER [facility] [facility] 1945 Planned Disposition: Home Health Service Anticipated Discharge Date: Discharge Date: Expected LOS: Initial Reviewer: [email or web address] Initial Review Date: 04/16/2020 Generated: 04/18/20 11:39 am DCPIA - Discharge Planning Initial Assessment Updated by [email or web address]: Idania Hopson on 04/18/20 10:31 am * Is the patient Alert and Oriented? Yes * How many steps to enter\exit or inside your home? 2/0 * PCP SIL OCHOA * Pharmacy [facility] * Preadmission Environment Home with Family * ADLs Partial Dependent * Partial ADLs (Assistance needed) Bathing Medication Management * Equipment None * Community resources currently utilized None * Additional services required to return to the preadmission environment? Yes * Can the patient safely return to the preadmission environment? Yes * Has this patient been hospitalized within the prior 30 days at any hospital? No Last DP export: 04/18/20 9:29 a Patient Name: TAIWO PAINTER Page [phone] at 1040 All edits/amendments must be made on the electronic document DICTATION DATE: 04/18/20 1039 ROLL SHOP SUPERVISOR: JIMY 04/18/20 1039 RPT#: [id number] DC DATE: STATUS: ADM IN [facility] [address] [place] [address] END OF REPORT
--- NOTE | 2020-04-18 11:00 | NUR ---
PT DISCHARGED HOME VIA WHEELCHAIR WITH FAMILY. PIV REMOVED WITH CATHETER TIP FULLY INTACT. TELEMETRY REMOVED AND RETURNED. PT SIGNED PROPER DISCHARGE INSTRUCTIONS AND REMOVED ALL VALUABLES FROM THE ROOM.
--- NOTE | 2020-04-18 11:14 | MORECARE ---
CASE MANAGEMENT DISCHARGE SUMMARY PATIENT: TAIWO PAINTER UNIT: [id number] ADM DATE: 04/16/20 AGE: 75 : 43 SEX: M ROOM/BED: D.5044 AUTHOR: TAN PARHAM PHYSICIAN: REFERRING PHYSICIAN: TIMOTEO WOOD MD DATE OF SERVICE: 04/18/20 Discharge Plan Patient Name: TAIWO PAINTER Facility: [facility]:[place] : 1945 Planned Disposition: Home Health Service Anticipated Discharge Date: Discharge Date: 04/18/2020 Expected LOS: Initial Reviewer: [email or web address] Initial Review Date: 04/16/2020 Generated: 04/18/20 12:13 pm Comments DCP- Discharge Planning Updated by [email or web address]: Idania Hopson on 04/18/20 10:[address] Patient Name: TAIWO PAINTER Admission Status: ER Accout number: [id number] Admission Date: 04-16-2020 : 1945 Admission Diagnosis: Attending: TIMOTEO WOOD Current LOS: 2 Anticipated DC Date: Planned Disposition: Home Health Service Primary Insurance: MEDICARE A & B Discharge Planning Comments: CM met with patient to complete initial dc planning assessment. CM educated patient on the CM role and verbal consent given by patient to complete assessment. CM verified patient's address, phone number, and emergency contact phone numbers. Patient lives at home with his daughter and son in law. At discharge patient plans to return home and feels this is a safe discharge. CM discussed availability of home health, rehab services, and medical equipment. pt states he would like home health to assist him with his medications, and would like assistance with his baths. MAYKEL signed for [facility] . CM spoke with Waylon from [facility] at [phone] denied known discharge needs at this time. Transportation provider at discharge will be his son in law. CM will continue to follow and will assist as needed with dc plans/needs. Automation Operator: Idania Hopson DCPIA - Discharge Planning Initial Assessment Updated by [email or web address]: Idania Hopson on 04/18/20 10:31 am * Is the patient Alert and Oriented? Yes * How many steps to enter\exit or inside your home? 2/0 * PCP SIL OCHOA * Pharmacy [facility] * Preadmission Environment Home with Family * ADLs Partial Dependent * Partial ADLs (Assistance needed) Bathing Medication Management * Equipment None * Community resources currently utilized None * Additional services required to return to the preadmission environment? Yes * Can the patient safely return to the preadmission environment? Yes * Has this patient been hospitalized within the prior 30 days at any hospital? No Last DP export: 04/18/20 9:40 a Patient Name: TAIWO PAINTER Page [phone] at 1114 All edits/amendments must be made on the electronic document DICTATION DATE: 04/18/20 1113 FLEET SALES MANAGER: JIMY 04/18/20 1113 RPT#: [id number] DC DATE:04/18/20 STATUS: DIS IN [facility] [address] [place] [address] END OF REPORT
--- NOTE | 2020-04-18 13:12 | MORECARE ---
CASE MANAGEMENT DISCHARGE SUMMARY PATIENT: TAIWO PAINTER UNIT: [id number] ADM DATE: 04/16/20 AGE: 75 : 43 SEX: M ROOM/BED: D.5748 AUTHOR: TAN PARHAM PHYSICIAN: REFERRING PHYSICIAN: TIMOTEO WOOD MD DATE OF SERVICE: 04/18/20 Discharge Plan Patient Name: TAIWO PAINTER Facility: [facility]:[place] : 1945 Planned Disposition: Home Health Service Anticipated Discharge Date: Discharge Date: 04/18/2020 Expected LOS: Initial Reviewer: [email or web address] Initial Review Date: 04/16/2020 Generated: 04/18/20 2:12 pm Comments DCP- Discharge Planning Updated by [email or web address]: Idania Hopson on 04/18/20 10:[address] Patient Name: TAIWO PAINTER Admission Status: ER Accout number: [id number] Admission Date: 04-16-2020 : 1945 Admission Diagnosis: Attending: TIMOTEO WOOD Current LOS: 2 Anticipated DC Date: Planned Disposition: Home Health Service Primary Insurance: MEDICARE A & B Discharge Planning Comments: CM met with patient to complete initial dc planning assessment. CM educated patient on the CM role and verbal consent given by patient to complete assessment. CM verified patient's address, phone number, and emergency contact phone numbers. Patient lives at home with his daughter and son in law. At discharge patient plans to return home and feels this is a safe discharge. CM discussed availability of home health, rehab services, and medical equipment. pt states he would like home health to assist him with his medications, and would like assistance with his baths. MAYKEL signed for [facility] . CM spoke with Waylon from [employer] at [phone] denied known discharge needs at this time. Transportation provider at discharge will be his son in law. CM will continue to follow and will assist as needed with dc plans/needs. Chief Dietitian: Idania Hopson DCPIA - Discharge Planning Initial Assessment Updated by [email or web address]: Idania Hopson on 04/18/20 10:31 am * Is the patient Alert and Oriented? Yes * How many steps to enter\exit or inside your home? 2/0 * PCP SIL OCHOA * Pharmacy [facility] * Preadmission Environment Home with Family * ADLs Partial Dependent * Partial ADLs (Assistance needed) Bathing Medication Management * Equipment None * Community resources currently utilized None * Additional services required to return to the preadmission environment? Yes * Can the patient safely return to the preadmission environment? Yes * Has this patient been hospitalized within the prior 30 days at any hospital? No Last DP export: 04/18/20 10:14 a Patient Name: TAIWO PAINTER Page [phone] at 1312 All edits/amendments must be made on the electronic document DICTATION DATE: 04/18/20 1312 SEATING CAPTAIN: JIMY 04/18/20 1312 RPT#: [id number] DC DATE:04/18/20 STATUS: DIS IN [facility] [address] [place] [address] END OF REPORT
--- NOTE | 2020-04-21 11:44 | CN ---
PATIENT NAME:TAIWO PAINTER MEDICAL RECORD: [id number] : 41 LOCATION:[place] D.2129 ADMIT DATE: 04/16/20 ACCOUNT: [id number] CONSULTING PHYSICIAN: RADHA BRUCE MD REFERRING PHYSICIAN: TIMOTEO WOOD MD DATE OF CONSULTATION: 04/17/2020 HISTORY OF PRESENT ILLNESS: A 75-year-old gentleman with no known history of coronary artery disease, had a nuclear stress testing approximately 2 years ago, has a history of hypertension, hyperglycemia, admitted with febrile illness, found to have group B strep pharyngitis as well as possible pneumonitis. Subsequently, he was found to have elevated cardiac enzymes. Difficult to tell if this is type 1 versus 2 NSTEMI. At this point, he is currently feeling better, defervesced. No chest pain. PAST MEDICAL HISTORY: Includes: 1. History of hypertension. 2. Hyperlipidemia. 3. Diabetes mellitus. 4. Gastroesophageal reflux disease. MEDICATIONS: Include insulin per scale, Protonix 40 mg p.o. q. day, Singulair 10 mg p.o. q. day, Naprosyn 500 b.i.d., Wellbutrin 150 q. day, lisinopril 5 q. day, amlodipine 5 q. day. ALLERGIES: None known. SOCIAL HISTORY: Retired . Does try to exercise with some stretching, etc. He is a nonsmoker. He takes care of all his ADLs. REVIEW OF SYSTEMS: The patient reports easy bruising but reports no swollen glands. The patient reports no fever, no night sweats, no significant weight gain, no significant weight loss. No significant exercise tolerance. The patient reports no dry eyes, no irritation, no vision change. Patient reports no difficulty hearing and no ear pain. Patient reports no frequent nose bleeds or nose and sinus problems. Patient reports no arm pain on exertion. No shortness of breath while lying down. No history of heart murmur. Patient reports no cough, no wheezing or coughing up blood. Patient reports no abdominal pain, no vomiting. Normal appetite. No diarrhea and not vomiting blood. No nausea and no constipation. Patient reports no incontinence. No difficulty urinating. No hematuria. No increased frequency. Patient reports no muscle aches. No weakness, no arthralgias, no back pain. No swelling of the extremities. Patient reports no abnormal mole, no jaundice, no rashes. Reports no loss of consciousness. No weakness and no numbness. No seizures, dizziness, or headaches. The patient reports no depression, no sleep disturbance, feeling safe in a relationship and no alcohol abuse. Patient reports no fatigue. Reports no runny nose or sinus pressure. No itching, no hives, and no frequent sneezing. PHYSICAL EXAMINATION: GENERAL: Pleasant, in no acute distress, appears stated age. VITAL SIGNS: 143/72, pulse 60 and regular. HEENT: Normocephalic, atraumatic. NECK: No bruits are noted. HEART: Regular. II/ systolic ejection murmur. CONSULT REPORT [id number] TAIWO PAINTER LUNGS: Prolonged respiratory phase, a few expiratory wheezes. ABDOMEN: Soft, nontender. EXTREMITIES: Pulses 2+ and 1+ edema. IMPRESSION: NSTEMI, type 1 versus type 2. PLAN: Add beta blockade, antiplatelet in the form of aspirin daily. After defercesced and gets over current illness probably will need angiography to delineate anatomy. NTS:[id number] Voice Confirmation ID: [id number] DOCUMENT ID: [id number] RADHA BRUCE MD at 1144 CC: [id number] DICTATION DATE: 04/17/20911 STORYBOARD ARTIST: 04/17/20 1950 DIS IN 04/18/20 [facility] [address] [place] [address]
--- NOTE | 2020-04-21 11:44 | EC ---
PATIENT:TAIWO PAINTER DATE OF SERVICE: 04/16/20 SEX: M MEDICAL RECORD: [id number] DATE OF : 41 LOCATION:D.M2 D.212 AGE OF PATIENT: 75 ADMISSION DATE: 04/16/20 REFERRING PHYSICIAN: INTERPRETING PHYSICIAN: RADHA BRUCE MD ECHOCARDIOGRAM REPORT ECHO CHARGES 4 ECHO COMPLETE Date: 04/17/20 CLINICAL DIAGNOSIS: ELEVATED, TROPONIN ECHOCARDIOGRAPHIC MEASUREMENTS (adult normal given) AC root (d.<3.7cm) 3.4 cm LV Septum d (<1.2 cm> 1.0 cm Valve Excursion 1.9 cm LV Septum (systole) 1.4 cm Left Atria (s.<4.0cm> 3.5 cm LVPW d(<1.2cm) 1.0 cm RV (d.<2.3cm) 2.8 cm LVPW (sytole) 1.4 cm LV diastole(<5.6CM) 4.9 cm MV E-F(>70mm/sec) cm LV systole 2.8 cm LVOT Diameter 1.8 cm MV exc.(>10mm) cm Est.ejection fraction (50-75%) % DOPPLER: LVIT cm/sec A 85 cm/sec E 73 cm/sec LA cm/sec RVSP 16.7 mmHg LVOT 155 cm/sec AOP1/2T m/s Asc. Ao 199 cm/sec RVOT 81 cm/sec RA cm/sec PA 94 cm/sec AV Gradient Peak 15.9 mmHg AV Mean 10.1 mmHg AV Area 1.9 cm MV Gradient Peak 3.7 mmHg MV Mean 2.2 mmHg MV Area cm COMMENTS: Sewing Machine Operator Semiautomatic: Sonal EM Rn Coronary Care Unit: 3 Dr. Cervantes TAPE# PACS Pericardial Effusion N DATE OF SERVICE: Adequate 2D, color flow imaging, spectral Doppler, and M-Mode. No LVH. LV internal dimensions are normal. Wall motion is normal. EF is greater than or equal to 55%. Aortic valve is tricuspid. No evidence of stenosis by Doppler interrogation. Left atrium is normal. Mitral valve shows no prolapse. Trivial MR. Right-sided chambers are grossly normal. Trivial TR. TRANSINT:[id number] Voice Confirmation ID: [id number] DOCUMENT ID: [id number] ECHOCARDIOGRAM REPORT [id number] TAIWO PAINTER RADHA BRUCE MD at 1144 CC: [id number] DICTATION DATE: 04/17/20 1537 CAR STOWER: 04/17/20 1646 DIS IN 04/18/20 [place] [id number] [place] [id number]
== END 2020-04-18 11:01 | disposition home health service (06) | DRG 193 ==
LOC: D.ER 05:58 → D.M2 09:13
PROVIDERS: Family Medicine; ADMIT Family Medicine; ATTEND Family Medicine
DX: J18.9 Pneumonia, unspecified organism (principal); I21.4 Non-ST elevation (NSTEMI) myocardial infarction; J98.11 Atelectasis; N17.9 Acute kidney failure, unspecified; J02.0 Streptococcal pharyngitis; E11.9 Type 2 diabetes mellitus without complications; I10 Essential (primary) hypertension; E78.5 Hyperlipidemia, unspecified; K21.9 Gastro-esophageal reflux disease without esophagitis; E66.9 Obesity, unspecified; Z68.38 Body mass index [BMI] 38.0-38.9, adult; J40 Bronchitis, not specified as acute or chronic; B95.0 Streptococcus, group A, as the cause of diseases classified elsewhere

== ENCOUNTER 2020-04-30 07:31 | Day surgery (SDC) | payer MEDICARE, OTHER ==
[~2020-04-30] VITALS: Ht 172.7 cm; Wt 111.1 kg
--- NOTE | ~2020-04-30 | HEMODYNAMI ---
PATIENT:TAIWO PAINTER MEDICAL RECORD: [id number] : 41 LOCATION:[facility] ADMISSION DATE: 04/30/20 Generatedon:04/30/202010:21 Patient name: TAIWO PAINTER Patient #: [id number] SSN: [id number] : 1945 Date of study: 04/30/2020 Page: Of Hemodynamic Procedure Report Patient Data Patient Demographics Procedure consent was obtained First Name: TAIWO Gender: Male Last Name: MADINA : 1945 Middle Initial: H Age: 75 year(s) Patient #: [id number] Race: SSN: [id number] Additional ID: [id number] Contact details Address: [address] [place] [address] street State: [place] City: [place] Zip code: [address] Past Medical History Allergies: No known allergies Admission Admission Data Admission Date: 04/30/2020 Admission Time: 7:31 Arrival Date: 04/23/2020 Arrival Time: 0:00 Admit Source: Other Insurance Payor: Medicare [facility] #: [id number] Height (in.): 67.72 BSA: 2.22 (m2) Height (cm.): 172 BMI: 37.52 (kg/m2) Weight (lbs.): 244.71 Weight (kg.): 111 Lab Results Lab Result Date: 04/30/2020 Lab Result Time: 0:30 Biochemistry Name Units Result Min Max BUN mg/dl 26 --(----)-* 7 18 Creatinine mg/dl 1.5 --(----)-* 0.6 1.3 eGFR ml/min 48 *-(----)-- 90 120 NONAFRICAN CBC Name Units Result Min Max Hematocrit % 40.8 -*(----)-- 42 54 Hemoglobin g/dl 13.9 --(*---)-- 13.5 17.5 Procedure Procedure Types Cath Procedure Diagnostic Procedure [facility] w/Coronaries Sedation Charges Moderate Sedation up to 30 minutes PCI Procedure Coronary Stent Coronary Stent Initial Hemochron ACT Test Procedure Description Procedure Date Procedure Date: 04/30/2020 Procedure Start Time: 9:38 Procedure End Time: 10:20 Procedure Staff Name Function Raul Garay MD Performing Physician Karissa Low RT Monitor Nurys Pizano RN Nurse Lexis Lockwood RT Scrub Procedure Data Cath Procedure Fluoroscopy Diagnostic fluoroscopy Total fluoroscopy Time: time: 14.3 min 14.3 min Diagnostic fluoroscopy Total fluoroscopy dose: dose: 2628 mGy 2628 mGy Contrast Material Contrast Material Type Amount (ml) Isovue 300 184 Entry Location Entry Primary Successful Side Size Upsize Upsize Entry Closure Matta ccessful Closure Location (Fr) 1 (Fr) 2 (Fr) Remarks Device Remarks Femoral Right 6 Fr Manual artery Short Compression Estimated blood loss: 10 ml Diagnostic catheters Device Type Used For End Catheter Placement DIAGNOSTIC Morehouse 110cm 5 Procedure Fr catheter ([id number]) Procedure Complications No complications Procedure Medications Medication Administration Route Dosage 0.9% NaCl I.V. 100 ml/hr Oxygen etCO2 Nasal cannula 2 l/min Lidocaine 2% added to field 20 Heparin Flush Bag added to field 2 bags (1000units/500ml NS) Radial Cocktail added to field 1 syringe (Verapamil 2mg/Nitro 400mcg/Heparin 1500units) Versed I.V. 2 mg Fentanyl I.V. 50 mcg Fentanyl I.V. 50 mcg Heparin Bolus I.V. 5000 units Integrilin (Bolus I.V. 10.2 ml 2mg/ml) Plavix P.O. 600 mg Hemodynamics Rest BSA: 2.22 (m2) HGB: 13.9 (g/dl) O2 Consumption: Estimated: 237.76 (ml/min) O2 Co nsumption indexed: Estimated:107.1 (ml/min/m) Heart Rate: 50 (bpm) Pressure Samples Time Site Value (mmHg) Purpose Heart Use Rate(bpm) 9:43 LV 63/1,4 Snapshot 48 9:44 AO 83/47(64) Pullback 47 9:44 LV 89/3,10 Pullback 47 Gradients Valve Time Site 1 Site 2 Mean SEP/DFP Peak To Heart Use (mmHg) (sec/min) Peak Rate (mmHg) (bpm) Aortic 9:44 LV AO 7 14 6 47 89/3,10 83/47(64) Calculations Valve P-P Mean Valve Index Valve Source Name Gradient Area Flow (cm2) Aortic 6 7 6 7 Snapshots Pre Cath Intra NCS Post Cath Vital Signs Time Heart Resp SPO2 etCO2 NIBP (mmHg) Rhythm Pain Sedation Rate (ipm) (%) (mmHg) Status Level (bpm) 9:21:31 49 11 99 35.2 126/72(108) SB 0 (11) 10(A) , No pain 9:25:47 46 11 100 2.9 123/67(100) SB 0 (11) 10(A) , No pain 9:30:03 49 12 98 38.1 112/56(93) SB 0 (11) 10(A) , No pain 9:34:21 45 10 99 36.7 114/63(93) SB 0 (11) 10(A) , No pain 9:38:33 49 19 99 23.2 115/66(100) SB 0 (11) 10(A) , No pain 9:42:55 47 14 98 20.2 104/57(74) SB 0 (11) 10(A) , No pain 9:47:09 48 13 97 16.4 108/61(92) SB 0 (11) 10(A) , No pain 9:51:25 50 12 98 37.4 114/61(82) SB 0 (11) 10(A) , No pain 9:55:45 49 12 99 36.7 110/59(80) SB 0 (11) 10(A) , No pain 10:00:01 49 17 99 29.2 108/66(92) SB 0 (11) 10(A) , No pain 10:04:15 50 13 100 33.7 125/66(107) SB 0 (11) 10(A) , No pain 10:08:31 53 16 100 32.9 123/68(97) SB 0 (11) 10(A) , No pain 10:13:30 53 17 99 34.4 Measuring SB 0 (11) 10(A) , No pain 10:13:38 54 15 100 34.4 114/71(93) SB 0 (11) 10(A) , No pain 10:17:54 54 13 100 35.2 118/67(97) SB 0 (11) 10(A) , No pain Medications Time Medication Route Dose Verified Delivered Reason Note s Effectiveness by by 9:19:43 0.9% NaCl I.V. 100 Raul Nurys used for ml/hr TanishaAugusto Pizano procedure MD [place] 9:19:49 Oxygen etCO2 2 l/min Raul Nurys used for Nasal Tanisha Harinder procedure cannula MD [place] 9:19:55 Lidocaine 2% added 20ml Raul Nurys for local to vial St Augusto Pizano anesthetic field MD [place] 9:19:59 Heparin Flush added 2 bags Raul Nurys used for Bag to St Augusto Pizano procedure (1000units/500ml field MD [place] NS) 9:20:06 Radial Cocktail added 1 Raul Nurys used for (Verapamil to syringe Tanisha Harinder procedure 2mg/Nitro field MD [place] 400mcg/Heparin 1500units) 9:35:01 Fentanyl I.V. 50 mcg Raul Nurys for sedation St Augusto Pizano MD, RN 9:35:51 Versed I.V. 2 mg Raul Nurys for sedation St Augusto Pizano MD, RN 9:42:13 Fentanyl I.V. 50 mcg Raul Nurys for sedation St Augusto Pizano MD, RN 9:54:00 Heparin Bolus I.V. 5000 Raul Nurys for veri fied units [facility] anticoagulation with Dr. MD CANDELARIO Cervantes 9:54:16 Integrilin I.V. 10.2 ml Raul Nurys for (Bolus 2mg/ml) St Augusto Pizano antiplatelet RN therapy 9:54:27 Plavix P.O. 600 mg Raul Nurys for [facility] Augusto Pizano antiplatelet RN therapy Procedure Log Time Note 9:01:20 Diagnostic Cath Status : Elective 9:04:38 Arrival Date: 04/23/2020 12:00:00 AM 9:04:39 Admit Source: Other 9:05:03 Insurance Payor : Medicare 9:05:19 Patient Height : 67.72 inches 9:05:22 Patient Weight : 244.71 lbs 9:05:36 Lab Result : Hemoglobin 13.9 g/dl 9:05:51 Procedure Status Elective Heart Cath (OP). 9:05:55 Karissa GONZALEZ(R) (CV) sent for patient. Start room use. 9:05:57 Time tracking: Regular hours (M-F 7:00 - 5:00) 9:06:01 Plan of Care:Hemodynamics will remain stable., Cardiac rhythm will remain stable., Comfort level will be maintained., Respiratory function will remain adequate., Patient/ family verbilizes understanding of procedure., Procedure tolerated without complication., Recovers from procedure without complications.. 9:08:48 Patient received from Pre/Post Procedure Room to CCL 1 Alert and oriented. Tansferred to table in Supine position. 9:08:53 Signed procedure consent form obtained from patient. 9:08:55 Warm blankets applied, and jermaine hugger turned on for patient comfort. 9:08:56 Correct patient and procedure confirmed by team. 9:08:58 ECG and BP/O2 sat monitors applied to patient. 9:09:20 Patient allergic to No known allergies 9:11:28 H&P Date Dictated: 04/30/2020 H&P Addendum completed by physician on day of procedure. (MUST COMPLETE FOR ALL OUTPATIENTS), New H&P dictated by physician.. 9:11:29 Pre-procedure instructions explained to patient. 9:11:30 Pre-op teaching completed and patient verbalized understanding. 9:11:40 Snore? Yes 9:11:46 Sleep apnea? Yes 9:11:52 Deviated septum? Unknown 9:11:54 Opens mouth fully? Yes 9:11:57 Sticks out tongue? Yes 9:12:18 Airway obstruction? Yes APNEA BUT DOES NOT WEAR HIS CPAP 9:12:24 Dentures? No ? 9:12:40 Family unavailable. 9:12:43 Patient NPO since Midnight. 9:12:48 Is the patient allergic to Iodine/contrast media? No. 9:12:53 Was the patient premedicated? Yes 9:12:57 Is patient on blood thinner?No 9:13:05 - 9:13:06 ----Pre-sedation anethsthesia assessment.---- 9:13:09 Previous problem with sedation/anesthesia? No ? 9:13:27 Patient diabetic? Yes. 9:19:43 0.9% NaCl 100 ml/hr I.V. was administered by Nurys Pizano RN; used for procedure; Verbal order read back and verified. 9:19:49 Oxygen 2 l/min etCO2 Nasal cannula was administered by Nurys Pizano RN ; used for procedure; Verbal order read back and verified. 9:19:55 Lidocaine 2% 20ml vial added to field was administered by Nurys Pizano RN; for local anesthetic; Verbal order read back and verified. 9:19:59 Heparin Flush Bag (1000units/500ml NS) 2 bags added to field was administered by Nurys Pizano RN; used for procedure; Verbal order read back and verified. 9:20:06 Radial Cocktail (Verapamil 2mg/Nitro 400mcg/Heparin 1500units) 1 syring e added to field was administered by Nurys Pizano RN; used for procedure; Verbal order read back and verified. 9:20:13 Vital chart was started 9:25:01 Pre procedure: right dorsailis pedis pulse 2+ Normal; easily identifiable; not easily obliterated 9:25:12 IV patent on arrival in left antecubital with 0.9% NaCl at [facility]. 9:25:28 Right Radial & Right Groin area was prepped with chlora-prep and draped in sterile fashion 9:25:50 ACIST Syringe (97416) opened to sterile field. 9:25:51 Bag Decanter (2002S) opened to sterile field. 9:25:52 Medline Cath Pack ([id number]) opened to sterile field. 9:25:53 ACIST Hand Control (86433) opened to sterile field. 9:25:54 ACIST Manifold (24740) opened to sterile field. 9:25:59 EMERALD Guide Wire (859-914) opened to sterile field. 9:26:09 Baseline sample Acquired. 9:26:15 Rhythm: sinus bradycardia 9:26:17 Full Disclosure recording started 9::52 Lab Result : Hemoglobin 13.9 g/dl 9::52 Lab Result : Hematocrit 40.8 % 9::52 Lab Result : eGFR NONAFRICAN 48 ml/min 9:27:52 Lab Result : BUN 26 mg/dl 9:27:52 Lab Result : Creatinine 1.5 mg/dl 9:28:04 Lab results completed and on chart. 9:30:14 Risk of Mortality: 0.7 9:30:19 Risk of blood transfusion: 0.3 9:30:25 Risk of JOHAN: 1.8 9:33:00 MBrace Wrist Support (114768242) opened to sterile field. 9:33:10 SHEATH 6FR RAIN (9989397) opened to sterile field. 9:34:05 Zero performed for pressure channel P1 9:34:41 Alarms reviewed by R. N. 9:34:42 Sharps counted by scrub and verified by R.N. 9:34:43 Physician arrived 9:34:44 --------ALL STOP TIME OUT------ 9:34:45 Final Timeout: patient, procedure, and site verified with staff and physician. All members of the team are in agreement. 9:34:48 Right Radial & Right Groin site verified by team. 9:34:54 Fire Safety Assessment: A--An alcohol-based skin anteseptic being used preoperatively., C--Open oxygen or nitrous oxide is being used., D--An ESU, laser, or fiber-optic light is being used. 9:34:58 Physical assessment completed. ASA score P 2 - A patient with mild systemic disease as per Raul Garay MD. 9:35:01 Fentanyl 50 mcg I.V. was administered by Nurys Pizano RN; for sedation ; Verbal order read back and verified. 9:35:06 3a) 45-59 Moderately reduced kidney function. 9:35:12 Maximum allowable contrast dose (3.7 X eGFR X 0.75)133 ml. 9:35:20 Sedation plan: IV Moderate Sedation Medication:Versed, Fentanyl 9:35:51 Versed 2 mg I.V. was administered by Nurys Pizano RN; for sedation; Verbal order read back and verified. 9:38:05 Procedure started. 9:38:48 Local anesthetic to right femoral artery with Lidocaine 2% by Raul Casas MD.INITIAL ACCESS ONLY 9:40:32 A 6 Fr Short sheath was inserted into the Right Femoral artery 9:42:13 Fentanyl 50 mcg I.V. was administered by Nurys Pizano RN; for sedation ; Verbal order read back and verified. 9:42:41 Use device set Radial Dx or PCI 9:43:08 A DIAGNOSTIC Morehouse 110cm 5 Fr catheter (696543) was advanced over the wire and used for Procedure. 9:44:05 LV gram done using LITTLE 9:44:12 EF : 55 % 9:44:14 LV hemodynamics recorded. 9:44:17 Injector settings: Ml/sec: 5, Volume: 15, 9:44:23 LCA angiography performed. 9:44:27 Injector settings: Ml/sec: 3, Volume: 6, 9:46:53 RCA angiography performed. 9:46:57 Injector settings: Ml/sec: 3, Volume: 6, 9:47:56 Catheter removed. 9:47:58 Proceeding to intervention. 9:48:20 BMW 300cm Makinen 2 J wire (5808432Q) opened to sterile field. 9:48:21 INFLATOR Merit BasixCompak (ZK9085) opened to sterile field. 9:49:47 GUIDE 6FR XBLAD 3.5 catheter (40131241) opened to sterile field. 9:50:02 ACC Pre-intervention MANDI Flow is 3. 9:50:12 6 Fr XBLAD3.5 guide catheter was inserted over the wire 9:50:58 Pre PCI Site: Kaw mLAD has 99% stenosis. 9:51:08 GMS222 wire advanced. 9:54:00 Heparin Bolus 5000 units I.V. was administered by Nurys Pizano RN; for anticoagulation; verified with Dr. Cervantes Verbal order read back and verified. 9:54:16 Integrilin (Bolus 2mg/ml) 10.2 ml I.V. was administered by Nurys flower RN; for antiplatelet therapy; Verbal order read back and verified. 9:54:27 Plavix 600 mg P.O. was administered by Nurys Pizano RN; for antiplatelet therapy; Verbal order read back and verified. 9:55:52 WHISPER 300cm guide wire (1273934GW) opened to sterile field. 9:56:03 Wire removed. 9:56:16 [id number] wire advanced. 9:59:54 Wire removed. 9:59:58 Guide catheter AND WIRE REMOVED. 10:00:42 UNABLE TO CROSS LESION WITH WIRE, GOING TO RCA. 10:01:10 GUIDE 6FR HS I catheter (LA6HSI) opened to sterile field. 10:01:23 6 Fr HS1 guide catheter was inserted over the wire 10:01:49 Pre PCI Site: Kaw dRCA has 90% stenosis. 10:01:58 ACC Pre-intervention MANDI Flow is 3. 10:03:28 Guide catheter removed AND WIRE REMOVED. 10:04:32 GUIDE 6FR AR 1.0 catheter (BC4JJ25) opened to sterile field. 10:05:03 6 Fr AR1 guide catheter was inserted over the wire 10:08:07 [id number] wire advanced. 10:12:57 Place stent Inflation Number: 1 A LEORA RX 3.0 x 15 stent ([id number]) was prepped and advanced across the Dist RCA . The stent was deployed at 14 JOCELINE for 0:24 (min:sec) . 10:13:46 Stent catheter was removed intact over wire. 10:13:56 Wire removed. 10:13:57 Guide catheter removed. 10:14:01 ACC Post-intervention MANDI Flow is 3. 10:14:14 Procedure ended.(Physican Out) 10:14:25 Contrast amount:Isovue 300 184ml. 10:14:29 Maximum allowable dose exceeded? Yes. 10:14:31 Sharps counted by scrub and verified by R.N. 10:14:40 Fluoroscopy time 14.30 minutes. 10:14:49 Fluoroscopy dose: 2628 mGy 10:14:49 Flurop Dose total: 2628 10:14:58 Dose Area Product 29564 mGy/cm. 10:15:12 ZEPHYR REGULAR TR BAND (148039) opened to sterile field. 10:15:23 Sheath removed intact; hemostasis achieved with Manual Compression to the Right Femoral artery. 10:15:31 Critz band inflated with 10cc of air. 10:15:35 Insertion/operative site no bleeding no hematoma. 10:15:44 Post-procedure physical assessment completed. ASA score P 2 - A patient with mild systemic disease as per Raul Garay MD. 10:15:52 Post procedure rhythm: unchanged. 10:15:58 Estimated blood loss: 10 ml 10:16:00 Post procedure instruction explained to patient.Patient verbalizes understanding. 10:16:01 Patient needs reinforcement of post procedure teaching. 10:17:14 Procedure type changed to Cath procedure, Diagnostic procedure, LHC, LH C w/Coronaries, Sedation Charges, Moderate Sedation up to 30 minutes, PCI procedure, Coronary Stent, Coronary Stent Initial, Hemochron ACT Test 10:17:17 Procedure and supply charges have been captured, reviewed, submitted an d are correct. 10:18:59 Procedure Complication : No complications 10:19:12 Vital chart was stopped 10:19:17 [facility] Findings: MVD- PCI performed (see procedure note) 10:19:19 See physician's report for complete and final results. 10:19:23 Report given to Pre/Post Procedure Room. 10:19:27 Patient transfered to Pre/Post Procedure Room with Stretcher. 10:19:29 ACT drawn and resulted at >400- out of range seconds. (normal therapeutic range 180-240 seconds). 10:20:17 Procedure ended. 10:20:17 Full Disclosure recording stopped 10:20:28 ACC-PCI Only Patient was given prescriptions, or instructed by Raul Garay MD to start/continue the following medications upon discharge: Plavix 10:20:30 End room use (Document Last) Intervention Summary Intervention Notes Time ActionType Lesion and Equipment Used Action# Pressure Duration Attributes 10:12:57 Place stent Dist RCA LEORA RX 3.0 x 1 14 00:24 15 stent ([id number]) Device Usage Item Name Manufacture Quantity Catalog [facility] Lot# / Number Charge Number Stock Stock Serial# Code ACIST Syringe Acist 1 50108 539250 332606 705221 20 (31028) Medical Systems Inc Bag Decanter Microtek 1 2001S 814661 39256 494347 5 () Medical Inc. Medline Cath Medline 1 [id number] 872478 02971 400537 5 Pack ([id number]) ACIST Hand Acist 1 60071 224697 824559 382202 5 Control Medical (09844) Systems Inc ACIST Manifold Acist 1 40466 242281 989629 290282 5 (30390) Medical Systems Inc EMERALD Guide Cardinal 1 502-455 068503 515214 287724 5 Wire (502-222) Health MBrace Wrist Advanced 1 140-0250-00 647141 59332 945428 5 Support Vascular ([id number]) Dynamics DIAGNOSTIC Terumo 1 40-0273 195648 006419 200821 5 Morehouse 110cm 5 Fr catheter (903547) SHEATH 6FR Cardinal 1 0742109 535592 3862228 481371 5 RAIN (5707909) Health BMW 300cm Arevalo 1 [id number] 012696 721535 465641 5 Makinen 2 J Vascular wire (7517355P) INFLATOR Merit Merit 1 EM4254 011715 916002 822482 15 BasixCompak Medical (RE6925) GUIDE 6FR Cardinal 1 [id number] 932245 086648 356266 10 XBLAD 3.5 Health catheter (23191401) WHISPER 300cm Arevalo 1 [id number] 086855 920230 851085 5 guide wire Vascular (4171432PA) GUIDE 6FR HS I Medtronic 1 LA6HSI 540391 96161 511739 1 catheter (LA6HSI) GUIDE 6FR AR Medtronic 1 [id number] 510054 29619 986587 1 1.0 catheter ([id number]) LEORA RX 3.0 x Medtronic 1 [id number] 697164 4312183 561099 5 [id number] 15 stent ([id number]) ZEPHYR REGULAR Cardinal 1 906367 618906 1868325 685351 5 [facility] RIWI (681020) Signature Audit Talmage Stage Time Signature Unsigned Intra-Procedure 04/30/2020 Karissa 10:20:56 AM Maranda RT(R) (CV) Intra-Procedure 04/30/2020 Nurys Pizano 10:21:23 AM RN Intra-Procedure 04/30/2020 Raul Galicia 10:21:[address] [facility] [address] [place] [address]
[~2020-04-30 07:31] MED LIST changes: +ASPIRIN325 MG PO; +BISOPROLOL FUMAR5 MG PO; +ZPAK PO
[2020-04-30] MEDS ORDERED: BAYER CHEWABLE81 MG PO (08:15)
[2020-04-30] MEDS ORDERED: HUMALOG 30100 UNITS/ SC (08:16)
[2020-04-30] MEDS ORDERED: LANTUS INS100 UNITS/ SC (08:17)
--- NOTE | 2020-04-30 08:18 | HP ---
PATIENT: TAIWO PAINTER MEDICAL RECORD: [id number] ACCOUNT: [id number] LOCATION:[place] : [birth year] ADMISSION DATE: 04/30/20 PCP: SIL OCHOA HISTORY AND PHYSICAL EXAMINATION HISTORY OF PRESENT ILLNESS: A 75-year-old gentleman with history of diabetes mellitus, hypertension, and hyperlipidemia admitted initially to the hospital with pneumonitis, found to have NSTEMI, difficult to assess type 1 versus type 2. Due to time constraints, he wished to be followed up as an outpatient with outpatient angiography. He is being admitted for diagnostic angiography. PAST MEDICAL HISTORY: Includes; 1. History of hypertension. 2. Hyperlipidemia. 3. Diabetes mellitus. 4. Coronary artery disease with recent NSTEMI type 1 versus type 2. SOCIAL HISTORY: Quit smoking several years back. Does exercise on a regular basis. PHYSICAL EXAMINATION: GENERAL: Pleasant, in no acute distress, appears stated age. HEENT: Normocephalic, atraumatic. NECK: No bruits noted. HEART: Regular. LUNGS: Good air excursion. ABDOMEN: Soft, nontender. EXTREMITIES: Pulse 2+ with no edema. IMPRESSION: Coronary artery disease with non-ST elevation myocardial infarction. We will plan angiography to delineate anatomy. Further recommendations based on the above. TRANSINT:[id number] Voice Confirmation ID: [id number] DOCUMENT ID: [id number] RADHA BRUCE MD at 0818 CC: [id number] DICTATION DATE: 04/29/20 1343 WOOD DOWEL MACHINE OPERATOR: 04/29/20 1423 [address] [place] [id number] [place] [address]
[2020-04-30] MEDS ORDERED: ZYRTEC10 MG PO (08:19)
[2020-04-30] MEDS ORDERED: FUROSEMIDE20 MG PO (08:19)
[2020-04-30] MEDS ORDERED: BYDUREON BCISE 2 MG SC (08:20)
[2020-04-30 08:25] VITALS: BP 134/62; Ht 172.7 cm; Wt 111.1 kg
[2020-04-30 08:35] LABS: BASOPHILS 0.8 % (0-2); EOSINOPHILS 2.5 % (0-7); HEMATOCRIT 40.8 % (42.0-54.0); HEMOGLOBIN 13.9 g/dL (13.5-17.5); IMMATURE GRANULOCYTES 0.2 % (0-5); LYMPHOCYTES 24.3 % (15-50); MCHC 34.1 g/dL (31.0-37.0); MCV 93.8 fL (80.0-100.0); MEAN PLATELET VOLUME 11.2 fL (7.4-10.4); MONOCYTES 9.9 % (2-11); NEUTROPHILS 62.3 % (40-80); RBC 4.35 10x6/uL (4.20-6.10); RDW 13.3 % (11.5-14.5); WBC 6.4 10x3/uL (4.8-10.8)
[2020-04-30 08:37] LABS: PLATELET COUNT 198 10x3/uL (130-400)
[2020-04-30 09:10] LABS: ANION GAP 11.2 mmol/L (8-16); CALCIUM 8.4 mg/dL (8.5-10.1); CARBON DIOXIDE 24.4 mmol/L (21.0-32.0); CHOL - HDL RATIO 3.2 ratio (2.3-4.9); CREATININE - SERUM 1.5 mg/dL (0.6-1.3); LDL-HDL RATIO 1.7 ratio (1.5-3.5); POTASSIUM - SERUM 3.6 mmol/L (3.5-5.1)
--- NOTE | 2020-04-30 10:28 | NUR ---
PT ARRIVED BY STRETCHER. PLACED ON MONITORS. ASSESSMENT COMPLETED. VSS AT THIS TIME. CALL LIGHT WITHIN REACH.
[2020-04-30] MEDS ORDERED: PLAVIX75 MG PO (10:39)
--- NOTE | 2020-04-30 10:43 | NUR ---
RIGHT WRIST DRESSING C/D/I. NO S/S OF HEMATOMA NOTED. CALL LIGHT WITHIN REACH. VSS AT THIS TIME. TOLERATING SIPS OF SODA. DENIES NAUSEA/PAIN.
--- NOTE | 2020-04-30 11:15 | NUR ---
RIGHT WRIST Z BAND IN PLACE. NO BLEEDING/HEMATOMA NOTED. CALL LIGHT WITHIN REACH. VSS AT THIS TIME.
--- NOTE | 2020-04-30 11:45 | NUR ---
RIGHT WRIST Z BAND IN PLACE. NO BLEEDING/HEMATOMA NOTED. CALL LIGHT WITHIN REACH. VSS AT THIS TIME. NO NEEDS.
--- NOTE | 2020-04-30 12:15 | NUR ---
RIGHT WRIST Z BAND IN PLACE. NO BLEEDING/HEMATOMA NOTED. CALL LIGHT WITHIN REACH. VSS AT THIS TIME. PT SET UP WITH SANDWICH TRAY AND DRINK. ALERT AND ORIENTED X 4. DENIES NAUSEA/PAIN AT THIS TIME.
--- NOTE | 2020-04-30 13:13 | NUR ---
PT SITTING UP IN BED WATCHING TELEVISION. VOIDED 350cc OF CLEAR YELLOW URINE IN URINAL WITHOUT DIFFICULTY. NO OTHER NEEDS AT THIS TIME. RIGHT WRIST Z BAND IN PLACE. NO BLEEDING/HEMATOMA NOTED.
--- NOTE | 2020-04-30 13:25 | NUR ---
2cc OF AIR REMOVED FROM Z BAND. NO BLEEDING/HEMATOMA NOTED. TOLERATED WELL. VSS.
--- NOTE | 2020-04-30 13:40 | NUR ---
3cc OF AIR REMOVED FROM Z BAND. NO BLEEDING/HEMATOMA NOTED. CALL LIGHT WITHIN REACH.
--- NOTE | 2020-04-30 13:55 | NUR ---
4cc OF AIR REMOVED FROM Z BAND. NO BLEEDING/HEMATOMA NOTED. CALL LIGHT WITHIN REACH. TOLERATED WELL.
--- NOTE | 2020-04-30 14:10 | NUR ---
Z BAND REMOVED AND DRESSING APPLIED. NO BLEEDING/HEMATOMA NOTED. TOLERATED WELL. PIV D/C'D WITH CATH TIP INTACT. PT INSTRUCTED TO GET UP AND DRESSED AT THIS TIME. FAMILY AT BEDSIDE TO ASSIST
--- NOTE | 2020-04-30 14:25 | NUR ---
DISCUSSED DISCHARGE INSTRUCTIONS WITH PT AND PT'S FAMILY. THEY VOICED UNDERSTANDING. RIGHT WRIST DRESSING C/D/I. NO S/S OF HEMATOMA NOTED. RIGHT WRIST BRACE IN PLACE.
--- NOTE | 2020-04-30 14:30 | NUR ---
PT TAKEN DOWN TO VEHICLE BY WHEELCHAIR. NO S/S OF DISTRESS NOTED. ALL BELONGINGS AND PAPERWORK IN HAND.
--- NOTE | 2020-05-02 08:09 | OP ---
PATIENT NAME: TAIWO PAINTER MEDICAL RECORD: [id number] :41 LOCATION:D.CAT ADMISSION DATE: SURGEON: RADHA BRUCE MD DATE OF OPERATION: 04/30/2020 PROCEDURE: Left heart catheterization, selective coronary angiography, right radial approach. CATHETERS:. Lawrence catheter, radial sheath. The procedure was well tolerated. We proceeded with the PTCA stenting of the right coronary after procedure was finished. FINDINGS: Left ventriculography in 30-degree LITTLE view: Normal wall motion, normal systolic function. CORONARY ANATOMY: LEFT MAIN: Left main is free of disease. LAD: Fills to its distal third and is totally occluded and is seen filling via left to left as well as right to left collaterals. CIRCUMFLEX: Free of disease. RIGHT CORONARY ARTERY: Before the takeoff of the PD has a 80% to 90% stenosis. PLAN: Intervention of the right momentarily. DESCRIPTION OF PROCEDURE: Using indwelling sheath, AR1 guiding catheter provided excellent guide catheter support followed by 300 cm wire. Stent deployed was a 3.0 x 15 mm Fidel drug-eluting stent up to 14 atmospheres for 45 seconds. Final angiography shows excellent resolution of 80% stenosis to no significant residual. MANDI flow was 3 throughout the procedure. We will initially increase the collateral flow to the LAD as well as left to left collaterals. LV function remains normal. Plavix to be continued for 6 months. Sheath closed with TR band. TRANSINT:[id number] Voice Confirmation ID: [id number] DOCUMENT ID: [id number] RADHA BRUCE MD at 0809 CC: [id number] DICTATION DATE: 04/30/20 1016 OFFICE ASSOCIATE: 04/30/20 1302 [facility] 04/30/20 [facility] [address] [place] [address]
== END 2020-04-30 14:30 | disposition home or self-care (01) ==
LOC: D.CATH 07:31
PROVIDERS: ATTEND Internal Medicine Interventional Cardiology
DX: I25.119 Atherosclerotic heart disease of native coronary artery with unspecified angina pectoris (principal); I10 Essential (primary) hypertension; E78.5 Hyperlipidemia, unspecified; E11.9 Type 2 diabetes mellitus without complications; I21.A1 Myocardial infarction type 2; R06.02 Shortness of breath
CPT/HCPCS: 93458; C9600

== ENCOUNTER → 2020-06-05 09:31 | Outpatient (CLI) | payer MEDICARE, OTHER ==
[2020-04-30 08:25] VITALS: BMI 37.2
[~2020-06-05 09:31] MED LIST changes: +BAYER CHEWABLE81 MG PO; +BYDUREON BCISE 2 MG SC; +FUROSEMIDE20 MG PO; +LANTUS INS100 UNITS/ SC; +PLAVIX75 MG PO; +ZYRTEC10 MG PO
== END | disposition home or self-care (01) ==
LOC: D.US 09:30
PROVIDERS: ATTEND Internal Medicine Nephrology
DX: N18.9 Chronic kidney disease, unspecified (principal)

== ENCOUNTER → 2021-02-23 11:03 | Outpatient (CLI) | payer MEDICARE, OTHER ==
[2020-04-30 08:25] VITALS: BMI 37.2
== END | disposition home or self-care (01) ==
LOC: D.LAB 11:03
PROVIDERS: ATTEND Internal Medicine Pulmonary Disease
DX: Z11.52 Encounter for screening for COVID-19 (principal)

== ENCOUNTER → 2021-02-27 13:19 | Outpatient (CLI) | payer MEDICARE, OTHER ==
[2020-04-30 08:25] VITALS: BMI 37.2
== END | disposition home or self-care (01) ==
LOC: D.CT 08:00 → D.RT 08:00 → D.CT 08:30 → D.RT 13:19
PROVIDERS: ATTEND Internal Medicine Pulmonary Disease
DX: Z11.52 Encounter for screening for COVID-19 (principal); R91.1 Solitary pulmonary nodule; J45.909 Unspecified asthma, uncomplicated